=== PATIENT | male | born 1950 | race Caucasian/White ===

== ENCOUNTER → 2019-05-18 09:51 | Outpatient (CLI) | payer MEDICARE, SELFPAY ==
--- NOTE | 2019-05-18 10:04 | ART_ITS ---
Reason For Study: Claudication Procedure A bilateral lower extremity continuous wave Doppler with analog waveform analysis,segmental pressures,and ankle brachial indexes without exercise. Left Segmental Pressures Left brachial= 158mmHg. Left posterior tibial artery = >254mmHg. Left dorsalis pedis artery = >254mmHg. Left digit = 167 mmHg. The left dorsalis pedis waveforms are triphasic. The left posterior tibial artery waveforms are triphasic. Right Segmental Pressures Right brachial= 155mmHg. Right posterior tibial artery = >254mmHg. Right dorsalis pedis artery = >254mmHg. Right digit = 144 mmHg. The right dorsalis pedis waveforms are triphasic. The right posterior tibial artery waveforms are triphasic. Indices The right ankle brachial index by the dorsalis pedis is NC. The right ankle brachial index by the posterior tibial artery is NC. The right digital-brachial index is 0.91. The left ankle brachial index by the dorsalis pedis is NC. The left ankle brachial index by the posterior tibial artery is NC. The left digital-brachial index is 1.06. Interpretation Summary Triphasic Doppler waveforms are noted at ankle level bilaterally. Pulse-volume recordings appear satisfactory at all levels bilaterally. Resting ankle-brachial indices could not be determined bilaterally due to the noncompressibility of the vasculature. Digital-brachial indices are normal bilaterally. There is no evidence of significant arterial occlusive disease in the lower extremities bilaterally. However, there is evidence of arterial calcification at ankle level bilaterally. Ordering Physician: Darius Porter Referring Physician: MD Prabhjot Kimani Performed By: Graciela Singh RVT
== END ==
PROVIDERS: Family Provider Family Medicine; PCP Family Medicine; Referring Provider Student in an Organized Health Care Education/Training Program; Visit Provider Student in an Organized Health Care Education/Training Program
DX: I73.9 Peripheral vascular disease, unspecified (principal); E78.5 Hyperlipidemia, unspecified; E11.40 Type 2 diabetes mellitus with diabetic neuropathy, unspecified; I10 Essential (primary) hypertension; I25.10 Atherosclerotic heart disease of native coronary artery without angina pectoris
CPT/HCPCS: 93923

== ENCOUNTER → 2019-07-22 13:56 | Outpatient (CLI) | payer MEDICARE, SELFPAY ==
[2019-07-14 15:12] VITALS: BMI 34.3
--- NOTE | 2019-07-22 14:00 | ECHOCS_ITS ---
Reason For Study: Murmur Procedure This was a 2D Doppler, Color Flow transthoracic echocardiogram. The study was technically difficult. Contrast injection was performed. Exam performed in department. Left Ventricle Normal LV size. Left ventricular systolic function is normal. The estimated ejection fraction is 60 %. Unable to assess diastolic dysfunction. No regional wall motion abnormalities noted. Right Ventricle Normal RV size. Normal systolic function. Atria The left atrium is mildly enlarged. Normal right atrium. No doppler evidence for ASD. Mitral Valve There is mild to moderate mitral annular calcification. Extension of the mitral annular calcification onto the mitral valve leaflets. Mild-Moderate (1-2+) mitral valve insufficiency. Tricuspid Valve Normal tricuspid valve. Mild to moderate (1-2+) tricuspid valve insufficiency. Right ventricular systolic pressure estimated to be 23 mmHg. Aortic Valve Trisinus/trileaflet aortic valve. Mild diffuse aortic valve thickening. Mild diffuse aortic valve calcification. Mild aortic stenosis. Pulmonic Valve The pulmonic valve is not well visualized. Great Vessels Normal sized aortic root. Pericardium/Pleural No pericardial effusion. Medication 20 gauge I.V. with prn adaptor inserted into right arm. Diluted definity 2ml given slow IV push to enhance endocardial definition. MMode/2D Measurements & Calculations LVIDd: 4.0 cm IVSd: 1.8 cm LVOT diam: 2.0 cm LVIDs: 2.2 cm LVPWd: 1.3 cm FS: 46.7 % LVOT area: 3.2 cm2 Ao root diam: 3.8 cm LAV(MOD-bp): 78.9 ml LA A4 area: 22.3 cm2 LA dimension: 4.1 cm LAV(MOD-bp) Indexed: 38.1 ml/m2 LAV(MOD-sp2): 87.0 ml LAV(MOD-sp4): 70.5 ml RA A4 area: 17.1 cm2 Time Measurements MV dec time: 0.13 sec Doppler Measurements & Calculations MV E max gus: 125.8 cm/sec MV V2 max: 134.3 cm/sec MV P1/2t max gus: 134.8 cm/sec MV max P.2 mmHg MV P1/2t: 56.6 msec MV V2 mean: 62.8 cm/sec MV mean P.9 mmHg MV dec slope: 697.4 cm/sec2 MV V2 VTI: 26.4 cm MVA(P1/2t): 3.9 cm2 Ao V2 max: 176.2 cm/sec LV V1 max: 80.9 cm/sec PA V2 max: 103.0 cm/sec Ao max P.5 mmHg LV V1 max P.6 mmHg KEVIN(V,D): 1.5 cm2 TR max gus: 226.0 cm/sec TR max P.4 mmHg Interpretation Summary The study was technically difficult. Contrast injection was performed. Left ventricular systolic function is normal. The estimated ejection fraction is 60 %. The left atrium is mildly enlarged. There is mild to moderate mitral annular calcification. Extension of the mitral annular calcification onto the mitral valve leaflets. Mild-Moderate (1-2+) mitral valve insufficiency. Mild to moderate (1-2+) tricuspid valve insufficiency. Mild aortic stenosis. Right ventricular systolic pressure estimated to be 23 mmHg. Unable to assess diastolic dysfunction. Ordering Physician: Carlos Mojica Referring Physician: Carlos Mojica Performed By: Tonio Caban RCS
== END ==
PROVIDERS: PCP Family Medicine; Referring Provider Internal Medicine Cardiovascular Disease; Visit Provider Internal Medicine Cardiovascular Disease
DX: I48.20 Chronic atrial fibrillation, unspecified (principal)
CPT/HCPCS: 93306; Q9957; A4216; C8929

== ENCOUNTER → 2020-04-13 05:50 | Outpatient (CLI) | payer MEDICARE, SELFPAY ==
[2020-01-11 11:21] VITALS: BMI 33.6
--- NOTE | 2020-04-13 08:24 | STRESSREP ---
Stress Test Report Date: Procedure: Pharmacologic stress nuclear imaging study Indications: Syncope; CAD; CABG Consent: Per the patient Procedure: The patient underwent pharmacologic (Regadenoson) evaluation with a peak heart rate of 111 beats per minute (72%predicted maximal heart rate) and a peak blood pressure of 132/92 mmHg. The baseline ECG demonstrated atrial fibrillation. The peak pharmacologic ECG demonstrated no obvious ECG changes. There were no cardiac dysrhythmias pretest, during pharmacologic infusion, or recovery. There was no complaint of chest discomfort during pharmacologic infusion or recovery. The examination was discontinued secondary to completion of protocol. Impression: 1. Pharmacologic (Regadenoson) evaluation 2. Peak pharmacologic ECG with continued atrial fibrillation with no obvious ECG changes. 3. There were no cardiac dysrhythmias pretest, during pharmacologic infusion, or recovery. 4. Nuclear images pending Myocardial perfusion imaging study: Technique: The patient was injected with 15.0 millicuries of technetium 99m Cardiolite and subsequently rest SPECT Cardiolite nuclear imaging was obtained in the horizontal long, vertical long, and short axis views. The patient underwent pharmacologic (Regadenoson) evaluation with a peak heart rate of 111 beats per minute (72% percent predicted maximal heart rate) and a peak blood pressure of 132/92 mmHg. The patient was injected with 45.0 millicuries of technetium 99m Cardiolite and subsequently stress SPECT Cardiolite nuclear imaging was obtained in the horizontal long, vertical long, and short axis views. A gated Cardiolite study at peak stress was obtained. Interpretation: Rest and stress SPECT Cardiolite nuclear imaging status post realignment, normalization, and attenuation correction demonstrate relative uniform tracer uptake and myocardial perfusion appearing within normal limits. There is end systolic thickening and brightening. The gated Cardiolite study demonstrates myocardial thickening and inward wall motion. The reported LVEF is 74%. Impression: 1. Rest and stress SPECT Cardiolite nuclear imaging demonstrate relative uniform tracer uptake and myocardial perfusion appearing within normal limits. 2. The gated Cardiolite study reports an LVEF of 74%. This note was generated with [employer] software. It may contain incorrect words, spelling, and punctuation that were not noted in checking the note before signing.
== END ==
PROVIDERS: PCP Family Medicine; Referring Provider Internal Medicine Cardiovascular Disease; Visit Provider Internal Medicine Cardiovascular Disease
DX: I48.20 Chronic atrial fibrillation, unspecified (principal); E11.9 Type 2 diabetes mellitus without complications; G47.33 Obstructive sleep apnea (adult) (pediatric); Z99.89 Dependence on other enabling machines and devices; E78.2 Mixed hyperlipidemia; I10 Essential (primary) hypertension; Z95.1 Presence of aortocoronary bypass graft; I25.118 Atherosclerotic heart disease of native coronary artery with other forms of angina pectoris; R55 Syncope and collapse
CPT/HCPCS: 78452; 93017; 93271; A9500; A4216; J2785

== ENCOUNTER → 2020-10-05 07:36 | Outpatient (CLI) | payer MEDICARE, SELFPAY ==
[2020-10-01 10:46] VITALS: BMI 32.5
--- NOTE | 2020-10-05 07:43 | ECHOCS_ITS ---
Reason For Study: Murmur Procedure This was a 2D Doppler, Color Flow transthoracic echocardiogram. Technically difficult study, contrast injection performed. The study was technically difficult. Contrast injection was performed. Exam performed in department. Left Ventricle Normal LV size. Mild concentric left ventricular hypertrophy. Left ventricular systolic function is normal. The estimated ejection fraction is 60 %. Unable to assess diastolic dysfunction. No regional wall motion abnormalities noted. Right Ventricle Normal RV size. Normal systolic function. Atria The left atrium is moderately enlarged. The right atrium is mildly enlarged. No doppler evidence for ASD. Mitral Valve There is mild mitral annular calcification. Extension of the mitral annular calcification on the base of the posterior mitral valve leaflet. Mild (1+) mitral valve insufficiency. Tricuspid Valve Normal tricuspid valve. Mild to moderate (1-2+) tricuspid valve insufficiency. Right ventricular systolic pressure estimated to be 20 mmHg. Aortic Valve Trisinus/trileaflet aortic valve. Moderate diffuse aortic valve thickening. Moderate diffuse aortic valve calcification. Moderate aortic stenosis. Pulmonic Valve The pulmonic valve is not well visualized. Trivial pulmonic valve insufficiency. Great Vessels Calcified aortic root. Pericardium/Pleural No pericardial effusion. Medication 22 gauge I.V. with prn adaptor inserted into right arm. Diluted definity 3ml given slow IV push to enhance endocardial definition. MMode/2D Measurements & Calculations LVIDd: 3.9 cm IVSd: 1.5 cm LVOT diam: 2.0 cm LVIDs: 2.3 cm LVPWd: 1.4 cm FS: 39.5 % LVOT area: 3.2 cm2 LA dimension: 4.2 cm LAV(MOD-bp): 67.7 ml Aortic Valve Planimetry: 1.1 cm2 LAV(MOD-bp) Indexed: 33.0 ml/m2 LAV(MOD-sp2): 57.6 ml LAV(MOD-sp4): 74.3 ml LA A4 area: 24.6 cm2 RA A4 area: 20.3 cm2 Doppler Measurements & Calculations MV E max gus: 112.8 cm/sec Ao V2 max: 235.2 cm/sec LV V1 max: 66.4 cm/sec Ao max P.2 mmHg LV V1 max P.8 mmHg Ao V2 mean: 151.4 cm/sec LV V1 mean P.1 mmHg Ao mean P.1 mmHg LV V1 mean: 49.5 cm/sec Ao V2 VTI: 48.2 cm LV V1 VTI: 14.0 cm KEVIN(I,D): 0.94 cm2 KEVIN(V,D): 0.91 cm2 SV(LVOT): 45.1 ml TR max gus: 206.0 cm/sec TR max P.0 mmHg ECHO/Echo Complete W/ Contrast Interpretation Summary The study was technically difficult. Contrast injection was performed. Left ventricular systolic function is normal. The estimated ejection fraction is 60 %. Mild concentric left ventricular hypertrophy. The left atrium is moderately enlarged. The right atrium is mildly enlarged. There is mild mitral annular calcification. Extension of the mitral annular calcification on the base of the posterior mitr al valve leaflet. Mild (1+) mitral valve insufficiency. Mild to moderate (1-2+) tricuspid valve insufficiency. Moderate aortic stenosis. Trivial pulmonic valve insufficiency. Calcified aortic root. Right ventricular systolic pressure estimated to be 20 mmHg. Unable to assess diastolic dysfunction. Ordering Physician: Carlos Mojica Referring Physician: Ricci Rick Performed By: Tonio Caban RCS
== END ==
PROVIDERS: PCP Family Medicine; Visit Provider Internal Medicine Cardiovascular Disease
DX: I25.10 Atherosclerotic heart disease of native coronary artery without angina pectoris (principal); I34.0 Nonrheumatic mitral (valve) insufficiency; I07.1 Rheumatic tricuspid insufficiency; I35.0 Nonrheumatic aortic (valve) stenosis
CPT/HCPCS: 93306; Q9957; A4216; C8929

== ENCOUNTER 2020-10-20 13:02 | Emergency (ER) | payer MEDICARE, SELFPAY ==
[2020-10-01 10:46] VITALS: BMI 32.5
[2020-10-20 13:06] VITALS: BP 159/87; PULSE 92; RESP 18; TEMP 36.6; O2SAT 98; BMI 32.7
[2020-10-20 13:43] VITALS: O2SAT 98
--- NOTE | 2020-10-20 13:55 | RAD_ITS ---
STUDY: X-RAY CHEST REASON FOR EXAM: Male, 70 years old. Cough TECHNIQUE: Single AP portable view of the chest. COMPARISON: None. FINDINGS: The lungs are clear and expanded. There is no demonstrated pleural abnormality. Sternal cerclage wires and vascular clips are present from a prior sternotomy and coronary artery bypass graft procedure (CABG). Normal mediastinum and ronald. Normal visualized pulmonary arteries. There is mild mild atherosclerotic calcification of the aortic arch with tortuosity. The thoracic spine is not well-seen. Normal visualized ribs, clavicles, and shoulders. There is no demonstrated abnormality of the visualized soft tissue structures of the upper abdomen. RAD/Chest 1 View (Portable) IMPRESSION: No active pulmonary disease. Electronically Signed: Laz Gupta MD at 14:32 EDT Tel , Service support ,
[2020-10-20] MEDS: Loratadine 10 MG Tablet PO (14:10)
--- NOTE | 2020-10-20 14:35 | ED.VISSUMM ---
- ER Visit Summary Date of Service: 10/20/20 Chief Complaint: Congestion and cough History of Present Illness: The patient is a [address] Busby. Patient reports that he got his second Pfizer Covid vaccine 3 days ago. 8 to 10 hours later he became congested and has rhinorrhea. He had a sore throat which is resolved. He has a cough that is nonproductive. He denies any fever or chills. He denies any chest pain or shortness of breath. Physical Examination: Vitals: Stable. Afebrile. General: Well-nourished and well-developed. Head: Normocephalic atraumatic. Neck: Supple, no lymphadenopathy. No JVD. Nontender. Cardiovascular: Regular rate and rhythm. No murmurs. Respiratory: No respiratory distress. Clear to auscultation bilaterally. Abdominal: Soft, nontender, nondistended, normal bowel sounds. No guarding, rebound, or peritoneal signs. Back: Nontender. Extremities: Nontender, no edema. Skin: Normal color, no rash. Neurologic: Alert and oriented ?3. Cranial nerves II through XII are intact. Normal strength and sensation. Psych: Normal affect. Test Results: COVID-19 is negative. Clinical Impression(s) from Imaging Studies Chest X-Ray 10/20/20 13:55 IMPRESSION: No active pulmonary disease. Electronically Signed: Laz Gupta MD at 14:32 EDT Tel , Service support , Emergency Department Course and Treatment: Patient was given a dose of Claritin p.o. He is resting comfortably. Treatment Plan: I discussed the patient this is likely a coincidence with getting the Covid shot and that he may have seasonal allergies. He will be discharged with [facility]. Instructed to follow-up his primary care physician in 2 weeks if not improving. Return to the emergency department for any worsening symptoms. Disposition: To home in improved and stable condition. Impression: 1. URI. This note was generated with [employer] software. It may contain incorrect words, spelling, and punctuation that were not noted in review of the chart prior to signing ED Disposition - Plan for ED Patient: Disposition: Home or Assisted Living Instructions: ED URI, Viral, No Abx (Adult) Prescriptions: Cetirizine HCl [Zyrtec] 10 mg PO DAILY #14 capsule Prescription Printed Referrals: Ricci Rick MD [Primary Care Provider] - 10-14 Days if not better
[2020-10-20 14:49] VITALS: PULSE 65; RESP 16; O2SAT 96
== END 2020-10-20 14:51 | disposition home or self-care (01) ==
LOC: ED 13:51
PROVIDERS: Emergency Provider Emergency Medicine; PCP Family Medicine
DX: J06.9 Acute upper respiratory infection, unspecified (principal); E11.9 Type 2 diabetes mellitus without complications; I10 Essential (primary) hypertension; I48.91 Unspecified atrial fibrillation; I25.10 Atherosclerotic heart disease of native coronary artery without angina pectoris; Z95.1 Presence of aortocoronary bypass graft; Z79.4 Long term (current) use of insulin; Z79.899 Other long term (current) drug therapy; Z72.0 Tobacco use
CPT/HCPCS: 71045; 87426; 99283

== ENCOUNTER 2021-02-11 06:41 | Emergency (ER) | payer MEDICARE, SELFPAY ==
[2021-02-11 06:41] VITALS: BP 186/104; PULSE 68; RESP 18; TEMP 36.4; O2SAT 100; BMI 32.8
--- NOTE | 2021-02-11 07:15 | EDS_ITS ---
HPI History of Present Illness Chief Complaint: General Illness Narrative Narrative: 70-year-old male presenting requesting Covid testing. He states he was exposed to someone who tested positive for Covid on January 28. He states he had diarrhea but that has now improved. He is scheduled to have lung cancer screening on Thursday and is requesting Covid testing before this screening. Denies fever, chills. Denies shortness of breath or chest pain. Denies symptoms at this time. He is vaccinated for Covid. Recent Illness/Hospitalization: No [facility] Medical History (Updated 02/11/21 @ 07:[address] Abby March MD) Atherosclerotic heart disease of [place] coronary artery without angina pectoris Chronic atrial fibrillation Essential hypertension Mixed hyperlipidemia Nonrheumatic aortic (valve) stenosis DEMETRI on CPAP Type 2 diabetes mellitus Home Medications lisinopril 40 mg tablet 40 mg PO DAILY 07/08/19 [History Last Taken Unknown] gabapentin 300 mg capsule 300 mg PO BID cap 07/14/19 [History Last Taken Unknown] hydrocodone-acetaminophen 5-325mg 5mg-325mg 1 tab PO Q6H PRN 07/14/19 [History Last Taken Unknown] metformin 500 mg tablet 500 mg PO .COMPLEX 07/14/19 [History Last Taken Unknown] atorvastatin 40 mg tablet 40 mg PO DAILY #90 tab 01/11/20 [Rx Last Taken Unknown] dulaglutide 0.75 mg/0.5 mL subcutaneous pen injector 0.75 mg SC QWEEK 04/09/20 [History Last Taken Unknown] insulin degludec 100 unit/mL (3 mL) subcutaneous pen 82 unit SC DAILY ml 10/01/20 [History Last Taken Unknown] cetirizine 10 mg PO DAILY #14 capsule 10/20/20 [Rx Last Taken Unknown] metoprolol tartrate 50 mg PO BID 10/20/20 [History Last Taken Unknown] rivaroxaban 20 mg tablet 20 mg PO DAILY #90 tab 10/23/20 [Rx Last Taken Unknown] Allergy/AdvReac Type Severity Reaction Status Date / Time No Known Allergies Allergy Verified 02/11/21 06:46 Family History Father Sudden cardiac , Onset Age: 49 Mother Alzheimer disease Sister Diabetes Surgical History History of coronary artery bypass surgery (~10/17/09) History of tonsillectomy Social History (Updated 10/01/20 @ 11:[address] Carlos Mojica MD) Smoking Status: Former smoker alcohol intake: current details: Occasional substance use type: does not use caffeine: Yes Type: tea Number of servings: 1 ROS ROS ED Constitutional Constitutional ED: Denies fever(s) Eyes Eyes: Denies change in vision ENT ENT ED: Denies rhinorrhea or sore throat Cardiovascular Cardiovascular: Denies chest pain or palpitations Respiratory/Chest Respiratory/Chest: Denies cough or dyspnea Gastrointestinal Gastrointestinal: Denies abdominal pain, diarrhea, nausea or vomiting Genitourinary Genitourinary ED: Denies dysuria Musculoskeletal Musculoskeletal: Denies myalgias Integumentary Denies rash Neurologic Neurologic: Denies headache(s) Psychiatric Psychiatric: Denies suicidal thoughts EXAM Physical Exam Const Vital Signs: 02/11/21 06:41 Temperature 97.6 F L Temperature Source Temporal Pulse Rate 68 Respiratory Rate 18 Blood Pressure 186/104 H Blood Pressure Mean 131 Pulse Ox 100 Oxygen Delivery Method Room Air Positive well nourished and well developed General Appearance ED: well developed HEENT Reports normocephalic and head/scalp atraumatic Eyes PERRL and EOMs intact bilaterally Neck supple General: Negative for tenderness Chest Wall inspection of chest normal Resp normal respiratory effort and clear to auscultation bilaterally Cardio regular rate and regular rhythm GI non-tender and non-distended Palpation: soft; Negative for guarding or rebound tenderness present no CVA tenderness Extremity normal to inspection Neuro oriented x3 Sensorium / Orientation: alert Psych mental status grossly normal MDM MDM MDM Narrative Medical decision making narrative: Rapid Covid is negative. Patient is advised to continue social distancing. Advised to follow-up with primary care physician. Advised return to ED for worsening complaints. Lab Data Attestation: I reviewed the patient's lab results. Discharge Plan Triage Chief Complaint: General Illness ED Provider: Abby March Dx/Rx/DC Orders Clinical Impression: Contact with and (suspected) exposure to covid-19 Instructions: Coronavirus Disease 2019 (COVID-19): Prevention Prescriptions: No Action hydrocodone-acetaminophen [[place]] 5-325 mg tablet 1 tab PO Q6H PRN (Reason: Pain Score 1-10) RF: 0 lisinopril 40 mg tablet 40 mg PO DAILY RF: 0 gabapentin 300 mg capsule 300 mg PO BID RF: 0 metformin 500 mg tablet 500 mg PO .COMPLEX RF: 0 Tresiba FlexTouch U-100 100 unit/mL (3 mL) insulin pen 82 unit SC DAILY RF: 0 atorvastatin 40 mg tablet 40 mg PO DAILY Qty: 90 RF: 3 metoprolol tartrate 50 MG tablet 50 mg PO BID RF: 0 cetirizine 10 MG capsule 10 mg PO DAILY Qty: 14 RF: 0 Trulicity 0.75 mg/0.5 mL pen injector 0.75 mg SC QWEEK RF: 0 Xarelto 20 mg tablet 20 mg PO DAILY Qty: 90 RF: 3 Primary Care Provider: Ricci Rick Referrals: Ricci Rick MD [Primary Care Provider] - Disposition Disposition: Home, Self Care
== END 2021-02-11 08:37 | disposition home or self-care (01) ==
PROVIDERS: Emergency Provider Emergency Medicine; PCP Family Medicine
DX: Z20.822 Contact with and (suspected) exposure to COVID-19 (principal); I10 Essential (primary) hypertension; E11.9 Type 2 diabetes mellitus without complications; E78.2 Mixed hyperlipidemia; I35.0 Nonrheumatic aortic (valve) stenosis; I25.10 Atherosclerotic heart disease of native coronary artery without angina pectoris; I48.20 Chronic atrial fibrillation, unspecified; G47.33 Obstructive sleep apnea (adult) (pediatric); Z95.1 Presence of aortocoronary bypass graft; Z79.4 Long term (current) use of insulin; Z79.01 Long term (current) use of anticoagulants; Z79.899 Other long term (current) drug therapy; Z87.891 Personal history of nicotine dependence
CPT/HCPCS: 87426; 99282

== ENCOUNTER → 2022-02-07 | Outpatient (CLI) | payer MEDICARE, SELFPAY ==
[2022-02-07 14:57] LABS: Absolute Lymphocyte Count 1.44 X10^3/uL (0.83-4.51); Absolute Neutrophil Count 5.5 X10^3/uL (2.0-7.7); Basophil# 0.04 X10^3/uL; Basophil% 0.5 % (0-1); Eosinophil# 0.51 X10^3/uL; Eosinophils% 6.2 % (0-5); Lymphocyte # 1.44 X10^3/ul (0.83-4.51); Lymphocyte % 17.6 % (19-41); Mean Corp Hgb Conc 33.3 g/dL (32-36); Mean Corpuscular Hgb 29.8 pg (27.0-32.0); Mean Corpuscular Volume 89.3 fL (80-94); Mean Platelet Vol. 9.5 fl (6.2-12.0); Monocyte% 7.3 % (0-10); NRBC Flagged by Analyzer 0 % (0-5); Neutrophil # 5.54 X10^3/uL (2.7-7.7); Neutrophil % 67.9 % (47-70); Platelet Count 243 K/mm3 (150-450); RBC Distribution Width CV 13.7 % (11.6-14.6); RBC Distribution Width SD 44.6 fl (35.1-43.9); Red Blood Count 5.04 M/mm3 (4.6-6.2); White Blood Count 8.2 K/mm3 (4.4-11.0)
[2022-02-07 15:41] LABS: Anion Gap 5 (5-15); BUN 15 mg/dL (7-18); BUN/Creat Ratio 12.4 RATIO (10-20); Calcium,Total 9.5 mg/dL (8.5-10.1); Chloride 109 mmol/L (98-107); Creatinine, Serum 1.21 mg/dL (0.70-1.30); EST Glomerular Filtration Rate 63 mL/min (>60); Est Glom Filt Rate - Afr Amer 76 mL/min (>60); Glucose 82 mg/dL (74-106); Potassium 4.5 mmol/L (3.5-5.1); Sodium Level 140 mmol/L (136-145); T4 Free Direct 1.01 ng/dL (0.76-1.46); Thyroid Stim Hormone (TSH) 2.17 uIU/mL (0.358-3.74)
[2022-02-07 16:14] LABS: BNP,B-Type NATRIURETIC PEPTIDE 153.2 pg/mL (0-100)
== END | disposition home or self-care (01) ==
LOC: LAB 14:16
PROVIDERS: PCP Family Medicine; Referring Provider Nurse Practitioner Family; Visit Provider Nurse Practitioner Family
DX: R06.09 Other forms of dyspnea (principal); R53.83 Other fatigue
CPT/HCPCS: 36415; 80048; 83880; 84439; 84443; 85025

== ENCOUNTER → 2022-02-20 | Outpatient (CLI) | payer MEDICARE, SELFPAY ==
--- NOTE | 2022-02-20 06:02 | ECHOCS_ITS ---
Reason For Study: Dyspnea/SOB Procedure This was a 2D Doppler, Color Flow transthoracic echocardiogram. The study was technically difficult. Contrast injection was performed. Exam performed in department. Left Ventricle Normal LV size. Left ventricular systolic function is normal. The estimated ejection fraction is 55 %. Unable to assess diastolic dysfunction due to arrhythmia. No regional wall motion abnormalities noted. Right Ventricle Normal RV size. Normal systolic function. Atria The left atrium is mildly enlarged. Normal right atrium. No doppler evidence for ASD. Mitral Valve There is mild mitral annular calcification. Mild focal mitral valve calcification. Mild (1+) mitral valve insufficiency. Tricuspid Valve Normal tricuspid valve. Moderate (2+) tricuspid valve insufficiency. Right ventricular systolic pressure estimated to be 24 mmHg. Aortic Valve Trisinus/trileaflet aortic valve. Moderate diffuse aortic valve thickening. Moderate diffuse aortic valve calcification. Moderate to severe aortic valve stenosis. Pulmonic Valve The pulmonic valve is not well visualized. Great Vessels The aortic root is not well visualized. Pericardium/Pleural No pericardial effusion. Medication 20 gauge I.V. with prn adaptor inserted into right arm. Diluted definity 1.5ml given slow IV push to enhance endocardial definition. MMode/2D Measurements & Calculations LVIDd: 4.4 cm IVSd: 1.0 cm LVOT diam: 2.0 cm LVIDs: 2.7 cm LVPWd: 0.99 cm RVDd: 3.2 cm FS: 37.8 % LVOT area: 3.2 cm2 LA dimension: 4.2 cm LAV(MOD-bp): 88.8 ml Aortic Valve Planimetry: 0.62 cm2 LAV(MOD-bp) Indexed: 43.7 ml/m2 LAV(MOD-sp2): 88.4 ml LAV(MOD-sp4): 78.8 ml LA A4 area: 24.6 cm2 RA A4 area: 17.6 cm2 Doppler Measurements & Calculations MV E max corey: 119.8 cm/sec Lat Peak E' Corey: 12.1 cm/sec Med Peak E' Corey: 9.2 cm/sec E/E' lat: 9.9 E/E' med: 13.1 Ao V2 max: 264.4 cm/sec LV V1 max: 61.4 cm/sec MR max corey: 368.9 cm/sec Ao max P.1 mmHg LV V1 max P.5 mmHg MR max P.4 mmHg Ao V2 mean: 183.2 cm/sec LV V1 mean P.82 mmHg Ao mean P.7 mmHg LV V1 mean: 41.7 cm/sec Ao V2 VTI: 54.6 cm LV V1 VTI: 14.9 cm KEVIN(I,D): 0.87 cm2 KEIVN(V,D): 0.74 cm2 SV(LVOT): 47.6 ml PA V2 max: 125.8 cm/sec TR max corey: 230.6 cm/sec TR max P.3 mmHg ECHO/Echo Complete W/ Contrast Interpretation Summary The study was technically difficult. Contrast injection was performed. Left ventricular systolic function is normal. The estimated ejection fraction is 55 %. The left atrium is mildly enlarged. There is mild mitral annular calcification. Mild focal mitral valve calcification. Mild (1+) mitral valve insufficiency. Moderate (2+) tricuspid valve insufficiency. Moderate to severe aortic valve stenosis. (by Spectral Doppler) and severe aort ic valve stenosis (by Planimetry). Right ventricular systolic pressure estimated to be 24 mmHg. Unable to assess diastolic dysfunction due to arrhythmia. Ordering Physician: Frankie Pantoja Referring Physician: Ricci Rick Performed By: Tonio Caban RCS
--- NOTE | 2022-02-20 10:01 | STRESSREP_ITS ---
Stress Test Report Date: 02-20-2022 Procedure: Pharmacologic stress nuclear imaging study Indications: Dyspnea on exertion; fatigue; CAD; status post CABG; aortic valve stenosis; atrial fibrillation Consent: Per the patient Procedure: The patient underwent pharmacologic (Regadenoson 0.4mg ) evaluation with a peak heart rate of 98 beats per minute (64%predicted maximal heart rate) and a peak blood pressure of 124/80 mmHg. The baseline ECG demonstrated atrial fibrillation. The peak pharmacologic ECG demonstrated no obvious ECG changes. There was a rare PVC pretest. There was no complaint of chest discomfort during pharmacologic infusion or recovery. The examination was discontinued secondary to completion of protocol. Impression: 1. Pharmacologic (Regadenoson) evaluation 2. Peak pharmacologic ECG with continued atrial fibrillation with no obvious ECG changes. 3. There was a rare PVC pretest. 4. Nuclear images pending Myocardial perfusion imaging study: Technique: The patient was injected with 14.5 millicuries of technetium 99m Cardiolite and subsequently rest SPECT Cardiolite nuclear imaging was obtained in the horizontal long, vertical long, and short axis views. The patient underwent pharmacologic (Regadenoson) evaluation with a peak heart rate of 98 beats per minute (64% percent predicted maximal heart rate) and a peak blood pressure of 124/80 mmHg. The patient was injected with 44.6 millicuries of technetium 99m Cardiolite and subsequently stress SPECT Cardiolite nuclear imaging was obtained in the horizontal long, vertical long, and short axis views. A gated Cardiolite study at peak stress was obtained. Interpretation: Rest and stress SPECT Cardiolite nuclear imaging status post realignment, normalization, and attenuation correction demonstrate relative uniform tracer uptake and myocardial perfusion appearing within normal limits. There is end systolic thickening and brightening. The gated Cardiolite study demonstrates myocardial thickening and inward wall motion. The reported LVEF is 68%. Impression: 1. Rest and stress SPECT Cardiolite nuclear imaging demonstrate relative uniform tracer uptake and myocardial perfusion appearing within normal limits. 2. The gated Cardiolite study reports an LVEF of 68%. This note was generated with [employer] software. It may contain incorrect words, spelling, and punctuation that were not noted in checking the note before signing.
== END | disposition home or self-care (01) ==
PROVIDERS: PCP Family Medicine; Referring Provider Nurse Practitioner Family; Visit Provider Nurse Practitioner Family
DX: I35.0 Nonrheumatic aortic (valve) stenosis (principal); I48.20 Chronic atrial fibrillation, unspecified; Z95.1 Presence of aortocoronary bypass graft; R53.83 Other fatigue
CPT/HCPCS: 78452; 93017; 93306; A9500; Q9957; A4216; C8929; J2785

== ENCOUNTER 2022-03-07 02:17 | Observation (INO) | payer MEDICARE, SELFPAY ==
[2022-03-07] VITALS (13 sets, daily range): BP systolic 129–194; BP diastolic 81–111; PULSE 78–115; RESP 16–26; TEMP 36.6–37; O2SAT 93–98; BMI 32.9; BMI 30.7
--- NOTE | 2022-03-07 02:25 | EKG12_ITS ---
Test Reason : HYPOGLYCEMIA Blood Pressure : / mmHG Vent. Rate : 119 BPM Atrial Rate : 220 BPM P-R Int : 000 ms QRS Dur : 080 ms QT Int : 310 ms P-R-T Axes : 000 023 107 degrees QTc Int : 436 ms Atrial fibrillation Nonspecific ST and T wave abnormality Abnormal ECG Confirmed by NEYMAR BYRANT, WILLIAM ([id number]), photographic editor MINO SCANLON ([id number]) on 03/10/2022 10:51:10 AM Referred By: VICKY Confirmed By:WILLIAM BLACKMON MD
--- NOTE | 2022-03-07 02:31 | EX.ED.DYSGE1 ---
HPI History of Present Illness Chief Complaint: Hypoglycemia Informant: patient Narrative Narrative: Patient is a 71-year-old male with history of coronary artery disease status post bypass in 2009, DEMETRI on CPAP, type 2 diabetes mellitus on metformin,Tresiba and Trulicity as well as atrial fibrillation on chronic Xarelto treatment presenting with generalized malaise, upset stomach and hypoglycemia. Patient states he has been under a lot of stress and is especially worried as he has a cardiac catheterization scheduled for next week on Thursday. He denies any chest pain but notes he had an abnormal stress test. He has been feeling unwell for a couple of days and his symptoms are especially bad today. Has had some nausea and generalized abdominal discomfort. He has a hard time describing or localizing it. He called his daughter but the phone was not working and she could not hear what he was saying so the daughter called 911. Patient was found to be hyperglycemic with a blood sugar in the 50s per EMS. He was given oral glucose and started on D10 infusion. Patient notes he normally can tell when his blood glucose is low but could not tell today. Denies any other complaints at this time. Chart review shows that patient had a normal recent stress test on 02/20/2022 however he has been having occasional shortness of breath and increased fatigue which is why cardiac work-up was initiated. Echocardiogram showed moderate to severe aortic valve stenosis with EF of 55% and right ventricular systolic pressure 24 mmHg. Stress test was largely normal. [facility] Medical History Atherosclerotic heart disease of [place] coronary artery without angina pectoris Chronic atrial fibrillation Essential hypertension Mixed hyperlipidemia Nonrheumatic aortic (valve) stenosis DEMETRI on CPAP Type 2 diabetes mellitus Home Medications lisinopril 40 mg tablet 40 mg PO DAILY 07/08/19 [History Last Taken Unknown] metformin 500 mg tablet 500 mg PO .COMPLEX 07/14/19 [History Last Taken Unknown] atorvastatin 40 mg tablet 40 mg PO DAILY #90 tabs 01/11/20 [Rx Last Taken Unknown] metoprolol tartrate 50 mg tablet 50 mg PO BID 10/20/20 [History Last Taken Unknown] rivaroxaban 20 mg tablet (Xarelto) 20 mg PO DAILY #90 tabs 10/23/20 [Rx Last Taken Unknown] dulaglutide 1.5 mg/0.5 mL subcutaneous pen injector (Trulicity) 1.5 mg subcut QWEEK 02/07/22 [History Last Taken Unknown] gabapentin 300 mg capsule 300 mg PO QHS 02/07/22 [History Last Taken Unknown] insulin degludec 100 unit/mL (3 mL) subcutaneous pen (Tresiba FlexTouch U-100 insulin) 12 unit subcut DAILY 02/07/22 [History Last Taken Unknown] Allergy/AdvReac Type Severity Reaction Status Date / Time No Known Allergies Allergy Verified 03/07/22 02:24 Family History Father Sudden cardiac , Onset Age: 49 Mother Alzheimer disease Sister Diabetes Surgical History History of coronary artery bypass surgery (~10/17/09) History of tonsillectomy Social History Smoking Status: Former smoker how long ago did patient quit smokin years ago alcohol intake: never substance use type: does not use caffeine: No ROS ROS ED Constitutional Constitutional ED: Denies chills or fever(s) Eyes Eyes: Denies change in vision ENT ENT ED: Denies sore throat Cardiovascular Cardiovascular: Denies chest pain or palpitations Respiratory/Chest Respiratory/Chest: Denies cough or dyspnea Gastrointestinal Gastrointestinal: Reports abdominal pain, nausea and vomiting; Denies constipation or diarrhea Genitourinary Genitourinary ED: Denies dysuria or hematuria Musculoskeletal Musculoskeletal: Denies arthralgias or myalgias Integumentary Denies rash Neurologic Neurologic: Reports weakness; Denies headache(s) or paresthesias Psychiatric Psychiatric: Denies anxiety Hematologic/Lymphatic Hematologic/Lymphatic: Reports easy bleeding and easy bruising EXAM Physical Exam Const Vital Signs: 03/07/22 02:18 03/07/22 04:35 03/07/22 06:14 Temperature 98.0 F Temperature Source Temporal Pulse Rate 113 H 114 H 115 H Respiratory Rate 18 18 26 H Blood Pressure 141/100 H 194/105 H Blood Pressure Mean 113 134 Pulse Ox 98 96 Oxygen Delivery Method Room Air Room Air Oxygen Flow Rate (L/min) 03/07/22 06:55 03/07/22 07:25 Temperature Temperature Source Pulse Rate 101 H 101 H Respiratory Rate 20 H 18 Blood Pressure 171/111 H 164/102 H Blood Pressure Mean 131 122 Pulse Ox 97 96 Oxygen Delivery Method Nasal Cannula Room Air Oxygen Flow Rate (L/min) 2 Positive well nourished and well developed General Appearance ED: well developed and NAD HEENT Reports dry mucous membranes Mouth ED: Yes dry mucous membranes Mouth: dry mucous membranes Eyes PERRL and EOMs intact bilaterally Neck supple and no JVD Chest Wall inspection of chest normal and palpation of chest normal Resp normal respiratory effort and clear to auscultation bilaterally Cardio regular rate and regular rhythm GI normal to inspection, nondistended, normoactive bowel sounds and non-tender Back/Spine no CVA tenderness Extremity normal to inspection General Extremety ED: Negative for edema or tenderness General Extremity: Negative for edema Neuro oriented x3 and no sensory deficits noted Motor Exam: strength 5/5 throughout and general weakness Psych mental status grossly normal Skin no rashes or lesions noted MDM MDM MDM Narrative Medical decision making narrative: Patient evaluated for generalized malaise, nausea and hypoglycemia. Blood sugar was low for EMS and he was given oral and IV glucose replacement. Patient states he just has not been feeling well for couple days. No other specific complaints. Exam is pretty benign. Patient is quite anxious and perseverates on needing a cardiac catheterization next week. Work-up is remarkable for leukocytosis with a white blood cell count of 15.2. Hemoglobin is normal as well as his platelets. BMP largely unremarkable. Lipase low. Given abdominal discomfort and leukocytosis CT of the abdomen pelvis is added on. This is largely negative. Patient's high-sensitivity troponin is 20 and 23. No acute ischemic EKG findings. Patient's glucose remained stable in the ER. Urinalysis is normal. From 5 AM patient started to develop burning and discomfort in his left thigh. This was after the CT. Patient has erythema extending from his left lateral thigh to the posterior knee as well as a separate area of erythema of the anterior knee. No specific warmth. I question of this is an allergic reaction however it is an unusual distribution. He started on IV Benadryl. Patient does not recall any leg discomfort prior to his ER visit. Patient reevaluated after the IV Benadryl. Patient is further progression of the redness no to the proximal calf. Continues to complain of burning pain. Will give IV fentanyl and Solu-Medrol. Compartments are soft. No crepitus. Given the localized erythema and pain we will treat this more like an erysipelas or cellulitis with antibiotics. Lactate is added on. Patient is admitted to the hospital service. Patient agreeable this plan of care. Remains hemodynamically stable in the ER. Lab Data Attestation: I reviewed the patient's lab results. Labs: Laboratory Results - last 24 hr 03/07/22 03/07/22 03/07/22 02:24 02:24 04:05 WBC 15.2 H RBC 5.25 Hgb 15.5 Hct 45.1 MCV 85.9 MCH 29.5 MCHC 34.4 RDW Std Deviation 42.6 RDW Coeff of Arya 13.7 Plt Count 293 MPV 10.1 Immature Gran % (Auto) 0.500 Neut % (Auto) 88.1 H Lymph % (Auto) 5.9 L [place] % (Auto) 5.3 Eos % (Auto) 0.0 Baso % (Auto) 0.2 Absolute Neuts (auto) 13.3 H Absolute Lymphs (auto) 0.90 Nucleated RBC % 0 Sodium 138 Potassium 4.7 Chloride 106 Carbon Dioxide 21.0 Anion Gap 11 BUN 15 Creatinine 1.20 Estim Creat Clear Calc 54.32 Est GFR (MDRD) Af Amer 77 Est GFR (MDRD) Non-Af 64 BUN/Creatinine Ratio 12.5 Glucose 122 H Calcium 9.1 Total Bilirubin 1.20 H AST 37 ALT 34 Alkaline Phosphatase 75 Troponin I High Sens 20 Total Protein 7.6 Albumin 3.4 Globulin 4.2 Albumin/Globulin Ratio 0.8 L Lipase 72 L Urine Color Yellow Urine Clarity Clear Urine pH 6.0 Ur Specific [place] 1.010 Urine Protein 100 H Urine Glucose (UA) Normal Urine Ketones 5 H Urine Occult Blood 10 H Urine Nitrite Negative Urine Bilirubin Negative Urine Urobilinogen Normal Ur Leukocyte Esterase Negative Urine RBC 0 SEEN Urine WBC 0 SEEN Ur Squamous Epith Cells 0 SEEN Urine Bacteria 0 SEEN Urine Mucus 0 SEEN POC Glucose 03/07/22 03/07/22 04:30 04:48 WBC RBC Hgb Hct MCV MCH MCHC RDW Std Deviation RDW Coeff of Arya Plt Count MPV Immature Gran % (Auto) Neut % (Auto) Lymph % (Auto) [place] % (Auto) Eos % (Auto) Baso % (Auto) Absolute Neuts (auto) Absolute Lymphs (auto) Nucleated RBC % Sodium Potassium Chloride Carbon Dioxide Anion Gap BUN Creatinine Estim Creat Clear Calc Est GFR (MDRD) Af Amer Est GFR (MDRD) Non-Af BUN/Creatinine Ratio Glucose Calcium Total Bilirubin AST ALT Alkaline Phosphatase Troponin I High Sens 23 Total Protein Albumin Globulin Albumin/Globulin Ratio Lipase Urine Color Urine Clarity Urine pH Ur Specific [place] Urine Protein Urine Glucose (UA) Urine Ketones Urine Occult Blood Urine Nitrite Urine Bilirubin Urine Urobilinogen Ur Leukocyte Esterase Urine RBC Urine WBC Ur Squamous Epith Cells Urine Bacteria Urine Mucus POC Glucose 109 H Radiography Chest X-Ray - ED: 1 View, Read by ED Physician, Read by Radiologist and No Acute Disease Diagnostic Testing: Clinical Impression(s) from Imaging Studies Chest X-Ray 03/07/22 02:55 IMPRESSION: No acute cardiopulmonary disease Electronically Signed: Mehul Moreno MD at 3:12 EDT , Abdomen/Pelvis CT 03/07/22 03:03 IMPRESSION: 1. No acute intra-abdominal abnormality. 2. Cholelithiasis with no evidence of acute cholecystitis. Electronically Signed: Mehul Moreno MD at 4:01 EDT , Rhythm Strip Rhythm Strip: A-fib Rate: 119 Ectopy: None EKG Initial EKG: Attestation: I personally reviewed and interpreted this EKG as follows: Interpretation: Atrial Fibrillation Comments: Atrial fibrillation at a rate of 119 Normal axis Normal intervals Normal ST segments Discharge Plan Triage Chief Complaint: Hypoglycemia ED Provider: Lidia Collier Dx/Rx/DC Orders Clinical Impression: Cellulitis of left thigh, Chronic atrial fibrillation, Leukocytosis, Hypoglycemia associated with diabetes Prescriptions: No Action lisinopril 40 mg tablet 40 mg PO DAILY metformin 500 mg tablet 500 mg PO .COMPLEX Rx Instructions: 500 mg PO 2 tabs in the am and 1 tab in the pm; gabapentin 300 mg capsule 300 mg PO QHS Tresiba FlexTouch U-100 100 unit/mL (3 mL) insulin pen 12 unit SC DAILY atorvastatin 40 mg tablet 40 mg PO DAILY Qty: 90 3RF Trulicity 1.5 mg/0.5 mL pen injector 1.5 mg subcut QWEEK Label Comments: INJECT 1.5 MG SUBCUTANEOUSLY ONE TIME A WEEK. INJECT ONCE PER WEEK. DISCARD PEN AFTER metoprolol tartrate 50 MG tablet 50 mg PO BID Xarelto 20 mg tablet 20 mg PO DAILY Qty: 90 3RF Rx Instructions: must administer with evening meal Primary Care Provider: Ricci Rick Referrals: Ricci Rick MD [Primary Care Provider] - Disposition Disposition: Home, Self Care
[2022-03-07] MEDS: 0.9% Normal Saline 1,000 ML 1000 ML IV (02:38)
[2022-03-07 02:39] LABS: Absolute Neutrophil Count 13.3 X10^3/uL (2.0-7.7); Basophil# 0.03 X10^3/uL; Basophil% 0.2 % (0-1); Hematocrit 45.1 % (40-54); Hemoglobin 15.5 g/dL (13.0-16.5); Lymphocyte % 5.9 % (19-41); Mean Corp Hgb Conc 34.4 g/dL (32-36); Mean Corpuscular Hgb 29.5 pg (27.0-32.0); Mean Corpuscular Volume 85.9 fL (80-94); Mean Platelet Vol. 10.1 fl (6.2-12.0); Monocyte% 5.3 % (0-10); NRBC Flagged by Analyzer 0 % (0-5); Neutrophil # 13.34 X10^3/uL (2.7-7.7); Neutrophil % 88.1 % (47-70); Platelet Count 293 K/mm3 (150-450); RBC Distribution Width CV 13.7 % (11.6-14.6); RBC Distribution Width SD 42.6 fl (35.1-43.9); Red Blood Count 5.25 M/mm3 (4.6-6.2); White Blood Count 15.2 K/mm3 (4.4-11.0)
[2022-03-07] MEDS: Ondansetron 4 MG/2 ML Vial IV (02:39)
--- NOTE | 2022-03-07 02:55 | RAD_ITS ---
STUDY: X-RAY CHEST REASON FOR EXAM: Male, 71 years old. Weakness TECHNIQUE: Single AP portable view of the chest. COMPARISON: None. FINDINGS: No confluent airspace opacity. There is no demonstrated pleural abnormality. Borderline cardiomegaly. Median sternotomy wires and coronary artery bypass graft clips noted. Normal mediastinum and ronald. Normal visualized pulmonary arteries. There is atherosclerotic calcification of the aortic arch . Normal visualized thoracic spine. Normal visualized ribs, clavicles, and shoulders. There is no demonstrated abnormality of the visualized soft tissue structures of the upper abdomen. RAD/Chest 1 View (Portable) IMPRESSION: No acute cardiopulmonary disease Electronically Signed: Mehul Moreno MD at 3:12 EDT ,
[2022-03-07 02:58] LABS: ALB/GLOB Ratio 0.8 RATIO (0.9-2.4); AST(SGOT) 37 U/L (15-37); Alanine Aminotransfer ALT/SGPT 34 U/L (16-61); Albumin, Serum 3.4 g/dL (3.2-5.0); Alkaline Phosphatase 75 U/L (45-117); Anion Gap 11 (5-15); BUN 15 mg/dL (7-18); BUN/Creat Ratio 12.5 RATIO (10-20); Calcium,Total 9.1 mg/dL (8.5-10.1); Chloride 106 mmol/L (98-107); EST Glomerular Filtration Rate 64 mL/min (>60); Est Glom Filt Rate - Afr Amer 77 mL/min (>60); Estimated Creatinine Clearance 54.32 ml/min; Globulin 4.2 g/dL (2.2-4.2); Glucose 122 mg/dL (74-106); Lipase 72 U/L (73-393); Potassium 4.7 mmol/L (3.5-5.1); Protein, Total 7.6 g/dL (6.4-8.2); Sodium Level 138 mmol/L (136-145); Troponin-I HS (w/2H Reflex) 20 pg/mL (3.0-78.0)
--- NOTE | 2022-03-07 03:03 | CT_ITS ---
STUDY: CT ABDOMEN AND PELVIS WITH CONTRAST REASON FOR EXAM: Male, 71 years old. Abdominal pain RADIATION DOSAGE (If Supplied By Facility): CTDIvol = ( 9.42 ) mGy, DLP = ( 1313.98 ) mGycm TECHNIQUE: Transaxial images were obtained from the dome of the diaphragm to the symphysis pubis without oral contrast. IV 100mL Isovue-300 was administered. Sagittal and coronal images were reconstructed. Individualized dose optimization techniques were used for this CT. COMPARISON: None. FINDINGS: The visualized lung bases are unremarkable. The visualized portions of the heart are within normal limits. Normal liver. Calcified stone within a nondistended, non the gallbladder. Normal spleen. Normal pancreas. Normal bilateral adrenal glands. Normal right kidney. Normal left kidney. Normal visualized stomach. Normal small intestine. Normal colon. The appendix is visualized and appears normal. Normal abdominal aorta. Normal inferior vena cava. Normal retroperitoneum. Normal urinary bladder. Normal abdominal wall. Mild multilevel degenerative change of the spine CT/Abdomen/Pelvis W IV Cont ONLY IMPRESSION: 1. No acute intra-abdominal abnormality. 2. Cholelithiasis with no evidence of acute cholecystitis. Electronically Signed: Mehul Morneo MD at 4:01 EDT ,
[2022-03-07 04:10] LABS: Bacteria 0 SEEN /hpf (None Seen); Mucous, Urine 0 SEEN /hpf (<or=2+); Red Blood Cells-Urine 0 SEEN /hpf (0-5); Squamous Epithelial Cells - UA 0 SEEN /hpf (0-5); White Blood Cells 0 SEEN /hpf (0-5)
[2022-03-07 04:17] LABS: Color, Urine Yellow (Yellow); Glucose, Dipstick Normal (Normal); Ketone-Dipstick 5 mg/dl (Negative); Leukocyte Esterase-Dipstick Negative /ul (Negative); Nitrite-Dipstick Negative (Negative); Occult Blood-Urine 10 /ul (Negative); Protein-Dipstick 100 mg/dl (Negative); Urine Bilirubin Dipstick Negative (Negative); Urine Clarity Clear (Clear); Urine Urobilinogen Normal (Normal)
[2022-03-07 04:35] LABS: Reflex Troponin-HS? (from REC) Y
[2022-03-07 04:51] LABS: Bedside Glucose 109 mg/dL (74-106)
[2022-03-07 05:09] LABS: Troponin-I HS 23 pg/mL (3.0-78.0)
[2022-03-07] MEDS: Metoprolol Tartrate 25 MG Tablet 50 MG PO (05:21)
[2022-03-07] MEDS: DiphenhydrAMINE 50 MG/ML Syringe IV (05:47)
[2022-03-07] MEDS: MethylPREDNISolone 125 MG/2 ML Vial IV (06:41)
[2022-03-07] MEDS: fentaNYL 100 MCG/2 ML Ampul 50 MCG IV (06:42)
--- NOTE | 2022-03-07 06:53 | ED.RN ---
PT PLACED ON O2 2L NC BECAUSE AFTER GIVEN THE FENTANYL THE PT IS NOW HAVING PERIODS OF APNEA. AWARE.
--- NOTE | 2022-03-07 08:27 | HP.PCM.HOS_ITS ---
HPI - General General Date of Admission: 03/07/22 Date of Service: 03/07/22 Chief Complaint: Hypoglycemia, EMS found glucose in 50s, mild abdominal discomfort left thigh rash HPI Narrative DULCE HAMILTON, is a 71 M Was brought to ED by EMS for hypoglycemia, glucose found 58. Patient is alert oriented but he said he did not feel hypoglycemic symptoms which normally has. He was mildly nauseated. Patient has not been feeling good for last couple days. Patient also has mild anxiety because of upcoming heart catheterization on coming Thursday for abnormal stress test. In ED,Patient complain of mild abdominal discomfort. Patient stated he feels mild abdominal upset with nausea but denies vomiting, abdominal pain, diarrhea or constipation. Patient also found to A. fib with RVR. His heart rate was 113 to 115/min. Blood pressure was elevated highest 171/111. In ED, he had CT abdomen with IV contrast which reported no acute intra- abdominal normality but he developed rash on posterior aspect of left thigh. He feels burning sensation. He states it was not there before CAT scan. He was given IV Benadryl and Solu-Medrol 125 mg in ED. Patient is further admitted [facility] Medical History (Updated 03/07/22 @ 16:[address] Chidi Adams MD) Arthritis Atherosclerotic heart disease of [place] coronary artery without angina pectoris Chronic atrial fibrillation Essential hypertension Mixed hyperlipidemia Nonrheumatic aortic (valve) stenosis DEMETRI on CPAP Type 2 diabetes mellitus Home Medications lisinopril 40 mg tablet 40 mg PO DAILY 07/08/19 [History Last Taken Unknown] metformin 500 mg tablet 1,000 mg PO BREAKFAST 07/14/19 [History Last Taken Unknown] atorvastatin 40 mg tablet 40 mg PO DAILY #90 tabs 01/11/20 [Rx Last Taken Unknown] metoprolol tartrate 50 mg tablet 50 mg PO BID 10/20/20 [History Last Taken Unknown] rivaroxaban 20 mg tablet (Xarelto) 20 mg PO DAILY #90 tabs 10/23/20 [Rx Last Taken Unknown] dulaglutide 1.5 mg/0.5 mL subcutaneous pen injector (Trulicity) 1.5 mg subcut QWEEK 02/07/22 [History Last Taken Unknown] gabapentin 300 mg capsule 300 mg PO BID 02/07/22 [History Last Taken Unknown] hydrocodone-acetaminophen 5-325mg 5mg-325mg 1 tab PO Q6H PRN Pain 03/07/22 [History Last Taken Unknown] insulin degludec 200 unit/mL (3 mL) subcutaneous pen (Tresiba FlexTouch U-200 insulin) 112 unit subcut DAILY 03/07/22 [History Last Taken Unknown] metformin 500 mg tablet 500 mg PO DINNER 03/07/22 [History Last Taken Unknown] Allergy/AdvReac Type Severity Reaction Status Date / Time No Known Allergies Allergy Verified 03/07/22 02:24 Family History Father Sudden cardiac , Onset Age: 49 Mother Alzheimer disease Sister Diabetes Surgical History History of coronary artery bypass surgery (~10/17/09) History of tonsillectomy Social History Smoking Status: Former smoker how long ago did patient quit smokin years ago alcohol intake: never substance use type: does not use caffeine: No Vital Signs Vital Signs Vital Signs: 03/07/22 02:18 03/07/22 04:35 03/07/22 06:14 Temperature 98.0 F Temperature Source Temporal Pulse Rate 113 H 114 H 115 H Respiratory Rate 18 18 26 H Blood Pressure 141/100 H 194/105 H Blood Pressure Mean 113 134 Pulse Ox 98 96 Oxygen Delivery Method Room Air Room Air Oxygen Flow Rate (L/min) 03/07/22 06:55 03/07/22 07:25 03/07/22 08:23 Temperature 98.2 F Temperature Source Oral Pulse Rate 101 H 101 H 90 Respiratory Rate 20 H 18 17 Blood Pressure 171/111 H 164/102 H 166/98 H Blood Pressure Mean 131 122 120 Pulse Ox 97 96 96 Oxygen Delivery Method Nasal Cannula Room Air Room Air Oxygen Flow Rate (L/min) 2 2 Weight Weight: 210 lb 2 oz Body Mass Index (BMI) 32.9 Results Lab / Micro Data Result Diagrams: 03/07/22 02:24 03/07/22 02:24 Labs: Laboratory Results - last 24 hr 03/07/22 02:24: WBC 15.2 H, RBC 5.25, Hgb 15.5, Hct 45.1, MCV 85.9, MCH 29.5, MCHC 34.4, RDW Std Deviation 42.6, RDW Coeff of Arya 13.7, Plt Count 293, MPV 10.1, Immature Gran % (Auto) 0.500, Neut % (Auto) 88.1 H, Lymph % (Auto) 5.9 L, [place] % (Auto) 5.3, Eos % (Auto) 0.0, Baso % (Auto) 0.2, Absolute Neuts (auto) 13.3 H, Absolute Lymphs (auto) 0.90, Nucleated RBC % 0 03/07/22 02:24: Sodium 138, Potassium 4.7, Chloride 106, Carbon Dioxide 21.0, Anion Gap 11, BUN 15, Creatinine 1.20, Estim Creat Clear Calc 54.32, Est GFR (MDRD) Af Amer 77, Est GFR (MDRD) Non-Af 64, BUN/Creatinine Ratio 12.5, Glucose 122 H, Calcium 9.1, Total Bilirubin 1.20 H, AST 37, ALT 34, Alkaline Phosphatase 75, Troponin I High Sens 20, Total Protein 7.6, Albumin 3.4, Globulin 4.2, Albumin/Globulin Ratio 0.8 L, Lipase 72 L 03/07/22 04:05: Urine Color Yellow, Urine Clarity Clear, Urine pH 6.0, Ur Specific [place] 1.010, Urine Protein 100 H, Urine Glucose (UA) Normal, Urine Ketones 5 H, Urine Occult Blood 10 H, Urine Nitrite Negative, Urine Bilirubin Negative, Urine Urobilinogen Normal, Ur Leukocyte Esterase Negative, Urine RBC 0 SEEN, Urine WBC 0 SEEN, Ur Squamous Epith Cells 0 SEEN, Urine Bacteria 0 SEEN, Urine Mucus 0 SEEN 03/07/22 04:30: POC Glucose 109 H 03/07/22 04:48: Troponin I High Sens 23 Micro: Microbiology 03/07/22 02:33 Nasal Secretion SARS-CoV-2 Antigen (Rapid) - Final Rhythm Strip Rhythm Strip: A-fib Rate: 119 Ectopy: None Radiology Impression Chest X-Ray 03/07/22 02:55 IMPRESSION: No acute cardiopulmonary disease Electronically Signed: Mehul Moreno MD at 3:12 EDT , Abdomen/Pelvis CT 03/07/22 03:03 IMPRESSION: 1. No acute intra-abdominal abnormality. 2. Cholelithiasis with no evidence of acute cholecystitis. Electronically Signed: Mehul Moreno MD at 4:01 EDT , Assessment & Plan Assessment/Plan (1) Allergic rash present on examination: PLAN: Plan This is 62 now patient came to ED for hypoglycemia, mild abdominal discomfort but developed left thigh redness after IV contrast 1. Most probably allergic rash of left posterior thigh: On exam, there is no tenderness, induration or swelling of the left posterior thigh and he developed after CT IV contrast. Continue Benadryl and IV Solu-Medrol. Patient has mild leukocytosis but I think it is due to inflammatory. It is mainly neutrophilic. Venous duplex negative for DVT of both lower extremities. Monitor clinically for rash and if it gets worse with tenderness and swelling, will start antibiotic. 2. Hypoglycemia with history of diabetes mellitus type 2: Hypoglycemia has resolved. Glucose 122. Accu-Chek insulin coverage Humalog sliding scale. Hold scheduled insulin. 3. Mild abdominal discomfort, exact etiology unclear: I think patient might have gastroparesis as he complains of bloating and abdominal discomfort. CT abdomen with IV contrast did not show any acute abnormality but cholelithiasis without cholecystitis. Outpatient evaluation for gastroparesis. 4. Atherosclerotic heart disease: No chest pain or shortness of breath. Continue home medication. Chest x-ray individually reviewed and shows no acute cardiopulmonary disease 5. Chronic A. fib with RVR on Xarelto with aortic stenosis: Patient heart rate in the ED was 114/min. Heart rate controlled about 90/min. Increase metoprolol 75 mg p.o. twice daily. Twelve-lead EKG reviewed shows A. fib 119 bpm, QTC 436 ms, nonspecific ST-T abnormality. Last echo in January 2022 reported EF 55%, moderate to severe aortic valve stenosis, mild MR, moderate TR, RVSP 24 mmHg. 6. Other chronic comorbidities include obstructive sleep apnea on CPAP and dyslipidemia and essential hypertension: Blood pressure is controlled. Home medication reconciliation done. Living will/advanced directive/end of life care: Patient does not have living will or advanced directive. After discussion of benefits/risks procedures involved with full code, DNR CC arrest and DNR CC, the patient opted for full c ode. Patient does want artificial life support including intubation, tube feed, ventilator and/chest compression, central venous catheter, vasopressor and DC shock if needed Total time spent in [id number] encounter in discussion of advanced directive 16 minutes. Clinical Impression(s) from Imaging Studies Chest X-Ray 03/07/22 02:55 IMPRESSION: No acute cardiopulmonary disease Abdomen/Pelvis CT 03/07/22 03:03 IMPRESSION: 1. No acute intra-abdominal abnormality. 2. Cholelithiasis with no evidence of acute cholecystitis. Venous Doppler Study 03/07/22 11:17 Interpretation Summary No evidence for acute deep venous thrombosis bilateral lower extremities with patent and compressible bilateral great saphenous veins. Charges/Coding Visit Charges OBSV E&M: 03776 Initial observation care L3 Procedures Hospitalists Procedures: 07259 Advncd Care Plan 30 Min
[2022-03-07 08:55] LABS: Lactic Acid 1.2 mmol/L (0.4-1.9)
[2022-03-07 09:11] LABS: Magnesium 1.7 mg/dL (1.6-2.6); Phosphorus 3.5 mg/dL (2.5-4.9)
[2022-03-07] MEDS: Lactated Ringers 1,000 ML 100 ML IV (10:45)
[2022-03-07] MEDS: Morphine 2 MG/ML Syringe IV (10:45)
[2022-03-07] MEDS: proCHLORPERazine 10 MG/2 ML Vial 5 MG IV (10:46)
--- NOTE | 2022-03-07 11:17 | VDLE_ITS ---
Reason For Study: SWELLING RIGHT LEFT GSV is normal. GSV is normal. CFV is compressible, spontaneous, phasic, CFV is compressible, spontaneous, phasic, competent and demonstrates normal competent, and demonstrates normal augmentation. augmentation. FV is compressible, spontaneous, phasic, FV is compressible, spontaneous, phasic, competent and demonstrates normal competent and demonstrates normal augmentation. augmentation. POP V is compressible, spontaneous, phasic, POP V is compressible, spontaneous, phasic, competent and demonstrates normal competent and demonstrates normal augmentation. augmentation. T/P Trunk is compressible. T/P Trunk is compressible. PTV is compressible. PTV is compressible. RT PerV is compressible. LT PerV is compressible. Procedure This is a venous duplex using B-mode, color flow and spectral Doppler. Exam performed portable in patient room. A preliminary report was called and/or faxed to [facility]. VL/Venous Duplex US - [facility] Interpretation Summary No evidence for acute deep venous thrombosis bilateral lower extremities with p atent and compressible bilateral great saphenous veins. Ordering Physician: Chidi Adams Referring Physician: Ricci Rick Performed By: Yancy Churchill, SALONICS, RVT
[2022-03-07 12:05] LABS: Bedside Glucose 88 mg/dL (74-106)
[2022-03-07] MEDS: Insulin Lispro 100 UNIT/ML INSULN.PEN SC ×2 (16:29→21:07)
[2022-03-07] MEDS: Rivaroxaban 20 MG Tablet PO (16:29)
[2022-03-07 17:15] LABS: Bedside Glucose 165 mg/dL (74-106)
--- NOTE | 2022-03-07 17:15 | CASEMGMT ---
FLO LEA NOTE: Intro role of CM to patient and BARRON form explained re: Observation status for treatment of cellulitis.? Explained hospitalization will be paid per?his insurance policy for Outpatient billing?and condition will continue to be evaluated for Inpt necessity. Also let pt know that [facility] sends paper in the billing packet with their phone number if questions arise. Pt verbalizes understanding and does not have further questions. ?Form signed, form placed on chart and copy given to pt. Cecil BARON RN, CM
[2022-03-07] MEDS: Gabapentin 300 MG Capsule PO (21:00)
[2022-03-07] MEDS: 0.9% Saline Lock 10 ML Syringe IV (21:01)
[2022-03-07] MEDS: Metoprolol Tartrate 25 MG Tablet 75 MG PO (21:06)
[2022-03-07 22:15] LABS: Bedside Glucose 299 mg/dL (74-106)
[2022-03-08] VITALS (8 sets, daily range): BP systolic 124–165; BP diastolic 87–102; PULSE 79–96; RESP 16–20; TEMP 36.6–36.9; O2SAT 94–97
[2022-03-08] MEDS: Insulin Lispro 100 UNIT/ML INSULN.PEN SC ×2 (06:45→11:37)
[2022-03-08 07:10] LABS: Bedside Glucose 208 mg/dL (74-106)
[2022-03-08 08:13] LABS: Absolute Lymphocyte Count 0.61 X10^3/uL (0.83-4.51); Absolute Neutrophil Count 12.9 X10^3/uL (2.0-7.7); Hematocrit 43.9 % (40-54); Hemoglobin 14.3 g/dL (13.0-16.5); Lymphocyte # 0.61 X10^3/ul (0.83-4.51); Lymphocyte % 4.3 % (19-41); Mean Corp Hgb Conc 32.6 g/dL (32-36); Mean Corpuscular Hgb 29.1 pg (27.0-32.0); Mean Corpuscular Volume 89.4 fL (80-94); Mean Platelet Vol. 10.2 fl (6.2-12.0); Monocyte# 0.56 X10^3/uL; Monocyte% 3.9 % (0-10); NRBC Flagged by Analyzer 0 % (0-5); Neutrophil # 12.93 X10^3/uL (2.7-7.7); Neutrophil % 91.1 % (47-70); Platelet Count 284 K/mm3 (150-450); RBC Distribution Width CV 14.2 % (11.6-14.6); RBC Distribution Width SD 46.4 fl (35.1-43.9); Red Blood Count 4.91 M/mm3 (4.6-6.2); White Blood Count 14.2 K/mm3 (4.4-11.0)
[2022-03-08 08:22] LABS: Anion Gap 10 (5-15); BUN 37 mg/dL (7-18); BUN/Creat Ratio 23.6 RATIO (10-20); Calcium,Total 8.6 mg/dL (8.5-10.1); Chloride 107 mmol/L (98-107); Creatinine, Serum 1.57 mg/dL (0.70-1.30); EST Glomerular Filtration Rate 47 mL/min (>60); Est Glom Filt Rate - Afr Amer 57 mL/min (>60); Estimated Creatinine Clearance 41.52 ml/min; Glucose 212 mg/dL (74-106); Potassium 4.7 mmol/L (3.5-5.1); Sodium Level 137 mmol/L (136-145)
[2022-03-08] MEDS: Metoprolol Tartrate 25 MG Tablet 75 MG PO (09:17)
[2022-03-08] MEDS: Atorvastatin Calcium 40 MG Tablet PO (09:18)
[2022-03-08] MEDS: 0.9% Saline Lock 10 ML Syringe IV (09:18)
--- NOTE | 2022-03-08 11:00 | DCINST_ITS ---
Discharge Instructions Diet Discharge Diet: 1800 Calorie Control Diet and 2000 mg Sodium Diet Activity Discharge Activity: Return to Normal Activity Weight Bearing Status: Weight bearing as tolerated Dressing / Incision Call your doctor if you observe: Fever of 101 or Higher, Coldness, Increased Pain, Numbness or Tingling, Change in Color, Inability to urinate, Inability to have a bowel movement, Shortness of breath, Dizziness, Fainting spells, Swelling in the ankles, Chest pain, Prolonged hiccupping, Increased palpitations (irregular heartbeat) and Calf discomfort Follow Up Care Test Results: Test results from this visit will be discussed in further detail at your follow- up appointment, if applicable. Discharge Plan Admission Admit Date/Time: 03/07/22 07:52 Primary Reason for Your Visit: Allergic rash and PALAK due to REMINGTON from IV contrast Attending Provider: Chidi Adams Primary Care Provider: Ricci Rick Instructions Additional Instructions / Restrictions: Advised BMP on 03/10 prior to cardiac cath on 03/11. Patient is discharged on Medrol Dosepak which will act as premedication for allergic rash prior to cardiac cath which is scheduled on 03/11. Patient instructed to call Dr. Mojica to let him know. Discharge Orders/Prescriptions Prescriptions: New diphenhydramine HCl 12.5 mg tablet,chewable 12.5 mg PO Q6H PRN (Reason: allergic rash) Qty: 30 0RF Rx Instructions: for allergic rash. methylprednisolone [Medrol (Jaron)] 4 mg tablets,dose pack 4 mg PO DAILY Qty: 21 0RF Rx Instructions: Take it as directed. Continued gabapentin 300 mg capsule 300 mg PO BID atorvastatin 40 mg tablet 40 mg PO DAILY Qty: 90 3RF Trulicity 1.5 mg/0.5 mL pen injector 1.5 mg subcut QWEEK Label Comments: INJECT 1.5 MG SUBCUTANEOUSLY ONE TIME A WEEK. INJECT ONCE PER WEEK. DISCARD PEN AFTER Rx Instructions: takes on tuesdays metoprolol tartrate 50 MG tablet 50 mg PO BID hydrocodone-acetaminophen 5-325 mg Tablet 1 tab PO Q6H PRN (Reason: Pain) Xarelto 20 mg tablet 20 mg PO DAILY Qty: 90 3RF Rx Instructions: must administer with evening meal Changed Tresiba FlexTouch U-200 200 unit/mL (3 mL) Insulin Pen 100 unit SUBCUT DAILY Qty: 9 0RF Rx Instructions: Hold if glucose less than 130 mg/dl. Held lisinopril 40 mg tablet 40 mg PO DAILY Hold Instructions: Hold for 7 days metformin 500 mg tablet 1,000 mg PO BREAKFAST Hold Instructions: Hold for 7 days metformin 500 mg Tablet 500 mg PO DINNER Hold Instructions: Hold for 7 days Referrals / Follow Up: Ricci Rick MD [Primary Care Provider] - Disposition Disposition (needs filled in before D/C Order can be placed): Home, Self Care
--- NOTE | 2022-03-08 11:23 | PCM.DC.SUM ---
Providers Date of Admission: 03/07/22 Date of Discharge: 03/08/22 Primary Care Physician: Dr. Ricci Rick MD Reason For Visit: CELLULITIS Diagnosis Discharge Diagnosis (1) Allergic rash present on examination: Status: Acute Code(s): T78.40XA - Allergy, unspecified, initial encounter (2) Contrast dye induced nephropathy: Status: Acute Code(s): N14.1 - Nephropathy induced by other drugs, medicaments and biological substances; T50.8X5A - Adverse effect of diagnostic agents, initial encounter Medications at Discharge Home Medications lisinopril 40 mg tablet 40 mg PO DAILY blood pressure 07/08/19 metformin 500 mg tablet 1,000 mg PO BREAKFAST diabetes 07/14/19 atorvastatin 40 mg tablet 40 mg PO DAILY #90 tabs 01/11/20 metoprolol tartrate 50 mg tablet 50 mg PO BID blood pressure 10/20/20 rivaroxaban 20 mg tablet (Xarelto) 20 mg PO DAILY #90 tabs 10/23/20 dulaglutide 1.5 mg/0.5 mL subcutaneous pen injector (Trulicity) 1.5 mg subcut QWEEK diabetes 02/07/22 gabapentin 300 mg capsule 300 mg PO BID nerve pain 02/07/22 hydrocodone-acetaminophen 5-325mg 5mg-325mg 1 tab PO Q6H PRN Pain 03/07/22 metformin 500 mg tablet 500 mg PO DINNER diabetes 03/07/22 diphenhydramine HCl 12.5 mg chewable tablet 12.5 mg PO Q6H PRN allergic rash #30 tabs 03/08/22 insulin degludec 200 unit/mL (3 mL) subcutaneous pen (Tresiba FlexTouch U-200 insulin) 100 unit (0.5 mL) subcut DAILY #9 mL 03/08/22 methylprednisolone 4 mg tablets in a dose pack (Medrol (Jaron)) 4 mg PO DAILY #21 tabs 03/08/22 Hospital Course Summary of Care Provided Hospital Course: This is 71 year patient came to ED for hypoglycemia, mild abdominal discomfort but developed left thigh redness after IV contrast 1. Most probably allergic rash of left posterior thigh: Patient was admitted in PCU. The rash has faded out and resolved. Patient was treated with Benadryl and IV Solu-Medrol. Prescription for Benadryl and Medrol Dosepak given. Patient has mild leukocytosis but I think it is due to inflammatory/allergic. It is mainly neutrophilic. Leukocytosis improving. Venous duplex negative for DVT of both lower extremities. As the rash has resolved therefore no cellulitis, cellulitis ruled out. 2. Hypoglycemia with history of diabetes mellitus type 2: Hypoglycemia has resolved. Glucose 122. Accu-Chek insulin coverage Humalog sliding scale. Hold scheduled insulin. 3. PALAK from REMINGTON: Patient BUN/creatinine was normal at the time of admission 13/07.2. Repeat labs today shows BUN 37, creatinine 1.57 therefore patient has contrast-induced nephropathy from IV contrast. Patient does not have new lower urinary tract symptoms of burning micturition to account for UTI or other diagnoses. IV fluid normal saline to 50 mill per hour for 4 hours. Discussed with the scouring train operator chief Dr. Dr. Blank and advised to follow-up in 1-2. BMP on 03/10/2022 prior to cardiac cath and follow-up with Dr. Mojica. 4. Mild abdominal discomfort, exact etiology unclear: I think patient might have gastroparesis as he complains of bloating and abdominal discomfort. CT abdomen with IV contrast did not show any acute abnormality but cholelithiasis without cholecystitis. Outpatient evaluation for gastroparesis. 5. Atherosclerotic heart disease: No chest pain or shortness of breath. Continue home medication. Chest x-ray individually reviewed and shows no acute cardiopulmonary disease. Patient is scheduled for cardiac cath on 03/11/[address] Mojica. I left a voice message with Dr. Mojica 6. Chronic A. fib with RVR on Xarelto with aortic stenosis: Patient heart rate in the ED was 114/min. Heart rate controlled about 90/min. Increase metoprolol 75 mg p.o. twice daily. Twelve-lead EKG reviewed shows A. fib 119 bpm, QTC 436 ms, nonspecific ST-T abnormality. Last echo in January 2022 reported EF 55%, moderate to severe aortic valve stenosis, mild MR, moderate TR, RVSP 24 mmHg. Other chronic comorbidities include obstructive sleep apnea on CPAP and dyslipidemia and essential hypertension: Blood pressure is controlled. Home medication reconciliation done. Living will/advanced directive/end of life care: Patient does not have living will or advanced directive. After discussion of benefits/risks procedures involved with full code, DNR CC arrest and DNR CC, the patient opted for full code. Patient does want artificial life support including intubation, tube feed, ventilator and/chest compression, central venous catheter, vasopressor and DC shock if needed Total time spent in [id number] encounter in discussion of advanced directive 16 minutes. Clinical Impression(s) from Imaging Studies Chest X-Ray 03/07/22 02:55 IMPRESSION: No acute cardiopulmonary disease Abdomen/Pelvis CT 03/07/22 03:03 IMPRESSION: 1. No acute intra-abdominal abnormality. 2. Cholelithiasis with no evidence of acute cholecystitis. Venous Doppler Study 03/07/22 11:17 Interpretation Summary No evidence for acute deep venous thrombosis bilateral lower extremities with patent and compressible bilateral great saphenous veins. Physical Exam Narrative Seen and examined on the day of discharge General: Alert, Oriented x3, Cooperative. No fever. HEENT: Atraumatic, PERRLA, EOMI, Normocephalic Oral: Oral mucosa dry. No Gingival or Mucosal Lesions/ Ulcerations Neck: Supple, No JVD, Negative Carotid Bruits Lungs: Air entry diminished in bilateral lung bases. No crepitation/rhonchi Cardiovascular:No tachycardia. Sinus rhythm. Normal S1, Normal S2, ejection systolic murmur over right second ICS. Abdomen: Bowel Sounds Present, Soft, Non Tender, Non-Distended. No palpable mass. : No renal angle tenderness. No suprapubic tenderness. Extremities: No edema, Capillary Refill Less than 3 Seconds Skin: Erythematous rash over posterior aspect of thigh has faded and resolved. Musculoskeletal: No Tenderness to Palpation of Joints or Extremities Neurological: Cranial nerves II-XII grossly intact, DTR 2+/4 and Symmetrical, Neuro grossly intact Psych/Mental Status: Normal Affect, Appropriate. Weight / BMI Weight Weight: 197 lb 5.019 oz Body Mass Index (BMI) 30.7 ABG / Lab / Microbiology Data Result Diagrams: 03/08/22 07:11 03/08/22 07:11 Laboratory: Laboratory Results - last 24 hr 03/07/22 11:42: POC Glucose 88 03/07/22 16:27: POC Glucose 165 H 03/07/22 21:05: POC Glucose 299 H 03/08/22 06:43: POC Glucose 208 H 03/08/22 07:11: WBC 14.2 H, RBC 4.91, Hgb 14.3, Hct 43.9, MCV 89.4, MCH 29.1, MCHC 32.6 D, RDW Std Deviation 46.4 H, RDW Coeff of Arya 14.2, Plt Count 284, MPV 10.2, Immature Gran % (Auto) 0.700, Neut % (Auto) 91.1 H, Lymph % (Auto) 4.3 L, Smyth % (Auto) 3.9, Eos % (Auto) 0.0, Baso % (Auto) 0.0, Absolute Neuts (auto) 12.9 H, Absolute Lymphs (auto) 0.61 L, Nucleated RBC % 0 03/08/22 07:11: Sodium 137, Potassium 4.7, Chloride 107, Carbon Dioxide 20.0 L, Anion Gap 10, BUN 37 H, Creatinine 1.57 H, Estim Creat Clear Calc 41.52, Est GFR (MDRD) Af Amer 57 L, Est GFR (MDRD) Non-Af 47 L, BUN/Creatinine Ratio 23.6 H, Glucose 212 H, Calcium 8.6 Microbiology: Microbiology 03/07/22 02:33 Nasal Secretion SARS-CoV-2 Antigen (Rapid) - Final Radiography Diagnostic Testing: Radiology Impression Venous Doppler Study 03/07/22 11:17 Interpretation Summary No evidence for acute deep venous thrombosis bilateral lower extremities with patent and compressible bilateral great saphenous veins. Ordering Physician: Chidi Adams Referring Physician: Ricci Rick Performed By: Yancy Churchill, ANDRE, RVT D/C Instructions Discharge Diet: 1800 Calorie Control Diet and 2000 mg Sodium Diet Weight Bearing Status: Weight bearing as tolerated Call your doctor if you observe: Fever of 101 or Higher, Coldness, Increased Pain, Numbness or Tingling, Change in Color, Inability to urinate, Inability to have a bowel movement, Shortness of breath, Dizziness, Fainting spells, Swelling in the ankles, Chest pain, Prolonged hiccupping, Increased palpitations (irregular heartbeat) and Calf discomfort Meaningful Use Info Meaningful Use Diagnoses (Choose all that apply): None applicable Discharge Plan Admission Admit Date/Time: 03/07/22 07:52 Primary Reason for Your Visit: Allergic rash and PALAK due to REMINGTON from IV contrast Attending Provider: Chidi Adams Primary Care Provider: Ricci Rick Instructions Additional Instructions / Restrictions: Advised BMP on 03/10 prior to cardiac cath on 03/11 and follow-up with Dr. Mojica/Dr. Blank. Patient is discharged on Medrol Dosepak which will act as premedication for allergic rash prior to cardiac cath which is scheduled on 03/11. Patient instructed to call Dr. Mojica to let him know. Discharge Orders/Prescriptions Prescriptions: New diphenhydramine HCl 12.5 mg tablet,chewable 12.5 mg PO Q6H PRN (Reason: allergic rash) Qty: 30 0RF Rx Instructions: for allergic rash. methylprednisolone [Medrol (Jaron)] 4 mg tablets,dose pack 4 mg PO DAILY Qty: 21 0RF Rx Instructions: Take it as directed. Continued gabapentin 300 mg capsule 300 mg PO BID atorvastatin 40 mg tablet 40 mg PO DAILY Qty: 90 3RF Trulicity 1.5 mg/0.5 mL pen injector 1.5 mg subcut QWEEK Label Comments: INJECT 1.5 MG SUBCUTANEOUSLY ONE TIME A WEEK. INJECT ONCE PER WEEK. DISCARD PEN AFTER Rx Instructions: takes on tuesdays metoprolol tartrate 50 MG tablet 50 mg PO BID hydrocodone-acetaminophen 5-325 mg Tablet 1 tab PO Q6H PRN (Reason: Pain) Xarelto 20 mg tablet 20 mg PO DAILY Qty: 90 3RF Rx Instructions: must administer with evening meal Changed Tresiba FlexTouch U-200 200 unit/mL (3 mL) Insulin Pen 100 unit SUBCUT DAILY Qty: 9 0RF Rx Instructions: Hold if glucose less than 130 mg/dl. Held lisinopril 40 mg tablet 40 mg PO DAILY Hold Instructions: Hold for 7 days metformin 500 mg tablet 1,000 mg PO BREAKFAST Hold Instructions: Hold for 7 days metformin 500 mg Tablet 500 mg PO DINNER Hold Instructions: Hold for 7 days Other Ambulatory Orders: Basic Metabolic Profile (BMP) (Routine) Timeframe: [id number] Location: Laboratory Ordered By: Dr. Chidi Adams Referrals / Follow Up: Ricci Rick MD [Primary Care Provider] - Dipika Blank MD [Med Staff - Consulting] - Within 1 Week (for REMINGTON, follow-up with BMP) Carlos Mojica MD [Med Staff - Active Staff] - In 1 Week (Scheduled cardiac cath on 03/11/2022) Disposition Disposition (needs filled in before D/C Order can be placed): Home, Self Care
[2022-03-08] MEDS: 0.9% Normal Saline 1,000 ML 250 ML IV (11:34)
[2022-03-08 12:00] LABS: Bedside Glucose 219 mg/dL (74-106)
--- NOTE | 2022-03-08 15:24 | CM.ED ---
senior software quality analyst advised that daughter said that patient can't go home as he is hallucinating and has no food and has no way home. SW met with patient. He voiced that he feels that this is a terrible hospital and the hospital from [facility]. Patient said that he feels that there is mass confusion but then voiced he feels like he is getting 50 different answers. Patient was able to state that he realized there is a staff shortage. Patient said that he feels that his daughter is getting the run around. Patient said that he has a appt to see the aircraft pneudraulic systems mechanic at 6:30am on Thursday for a cath. Patient reports that he resides at [facility]. Patient said that he was concerned as he was hallucinating. SW asked what that meant to patient and patient said I was talking to the nurse as she looked and is built like my daughter. Patient said that she did talk to me differently as she had a southern accent and called him sugar and sweetie. Patient said that the nurse had the same body type and hair color as his kylahaupaoter. Patient was able to tell this bond underwriter the president, day of week, date, and where he was at. SW discussed counseling resources due to the stress patient has been experiencing and he said I am fine.. I can handle it. Patient said that he has a friend, Tomer, who talks to daily for 2 hours. Patient said that the bright side of this all was that he had contact with his sister who he has not spoke to for numerous years. Patient said that he feels safe going home. SW asked patient about having food and he said that he has plenty of food. SW offered information on Meals on Wheels but he declined stating I like to shop. Patient said that he has $65 for a cab home as well as his debit card. Patient was provided information and handout on Directions Home and medic alert systems. Patient agreed to a referral for [facility]. No other issues or concerns voiced. SW does not believe patient was hallucinating as there was no other evidence of hallucinations while speaking to patient. Per RN patient is alert and oriented x3. Plan: Home with resources. Patient will be referred to [facility] Aylin BURGESS
--- NOTE | 2022-03-08 17:02 | CASEMGMT ---
Addendum entered by Aylin Mckenzie 03/08/22 20:18: During the conversation patient voiced that his daughter has been to his apartment as much as I could count on one hand in 14 years he lived in [place]. He then said how he had taken her across [place] to visit the [employer] x2. Patient was able to voice his favorite [place]. Patient also voiced that he does not want MOW as he enjoys grocery shopping. Patient said that no one is talking to my daughter and social media marketing manager explained that staff has talked to his daughter numerous times. SW later overheard patient voicing that this is the worst hospital and he was in [facility] with homeless people and got better treatment. Addendum entered by Aylin Mckenzie 03/08/22 20:14: Patient said that he had $65 and debit card to pay for a ride home. Patient agreed to pay for the taxi ride home. SW made a referral to [facility]. Aylin BURGESS Original Note: SW met with patient and advised him that the staff is working on a ride. Patient said well I am about ready to walk out of here. SW explained that the hospital staff has no control over transport truck driver availability. SW spoke to patient and advised him that patient's ride will be at 5pm. Patient said that he can walk around. Patient stated he is comfortable going home. Patient said that he is safe going home. Patient reports he is looking forward to a shower at his house. Plan: Home at discharge Aylin BURGESS
== END 2022-03-08 11:18 | disposition home or self-care (01) ==
LOC: ED 08:26 → PCU 08:35
PROVIDERS: Admitting Provider Internal Medicine; Emergency Provider Emergency Medicine; PCP Family Medicine; Visit Provider Internal Medicine
DX: N14.1 Nephropathy induced by other drugs, medicaments and biological substances (principal); N17.9 Acute kidney failure, unspecified; E11.649 Type 2 diabetes mellitus with hypoglycemia without coma; I48.20 Chronic atrial fibrillation, unspecified; Z79.4 Long term (current) use of insulin; T50.8X5A Adverse effect of diagnostic agents, initial encounter; R06.02 Shortness of breath; R94.39 Abnormal result of other cardiovascular function study; L03.116 Cellulitis of left lower limb; I10 Essential (primary) hypertension; E78.2 Mixed hyperlipidemia; I25.10 Atherosclerotic heart disease of native coronary artery without angina pectoris; Z87.891 Personal history of nicotine dependence; G47.33 Obstructive sleep apnea (adult) (pediatric); Z95.1 Presence of aortocoronary bypass graft; Z79.899 Other long term (current) drug therapy; Z79.01 Long term (current) use of anticoagulants
CPT/HCPCS: 36415; 71045; 74177; 80048; 80053; 81001; 82962; 83605; 83690; 83735; 84100; 84484; 85025; 87040; 87811; 93005; 93970; 96361; 96365; 96366; 96375; 96376; 97162; 97166; 99218; 99285; J7030; J7050; J7120; Q9967; A4216; G0378; J0295; J2405

== ENCOUNTER 2023-05-03 13:45 | Emergency (ER) | payer MEDICARE, SELFPAY ==
[2023-05-03 13:48] VITALS: BP 171/110; PULSE 84; RESP 18; TEMP 36.2; O2SAT 100
[2023-05-03 14:10] VITALS: BMI 29.9
--- NOTE | 2023-05-03 14:38 | RAD_ITS ---
INDICATION: cough EXAMINATION/TECHNIQUE: X-RAY - XR Chest 2 Views COMPARISON: Prior study dated: 03/07/2022. FINDINGS: LINES/DEVICES: None. LUNGS: No consolidation, edema or effusion. No pneumothorax. MEDIASTINUM AND CARDIOVASCULAR STRUCTURES: Status post median sternotomy. Aortic stent. BONES AND SOFT TISSUES: Unremarkable. RAD/Chest PA and Lateral IMPRESSION: No radiographic evidence of acute cardiopulmonary disease. Electronically Signed: Laz Gupta MD at 15:40 EST ,
--- NOTE | 2023-05-03 14:39 | EX.ED.DYSGE1 ---
HPI <FAITH Leung - Last Filed: 05/03/23 17:53> History of Present Illness Chief Complaint: GI Bleed Narrative Narrative: Patient is a 72-year-old male on Xarelto, A-fib, atrial valve replacement type 2 diabetes who presents the emergency department with blood in his sputum after clearing his throat. Patient states he does have this on occasion where is usually streaked with blood however this morning when he clears his throat there was more blood than sputum. Secondary to his recent surgery, he is here for reevaluation. He denies any chest pain, he denies any shortness of breath, fever chills cough. PFS <FAITH Leung - Last Filed: 05/03/23 17:53> [facility] Medical History (Updated 05/03/23 @ 17:53 by FAITH Leung) Arthritis Atherosclerotic heart disease of [place] coronary artery without angina pectoris Chronic atrial fibrillation Essential hypertension Leukocytosis Mixed hyperlipidemia Nonrheumatic aortic (valve) stenosis DEMETRI on CPAP Type 2 diabetes mellitus Home Medications lisinopril 40 mg tablet 40 mg PO DAILY blood pressure 07/08/19 [History Last Taken Unknown] metformin 500 mg tablet 1,000 mg PO BREAKFAST diabetes 07/14/19 [History Last Taken Unknown] atorvastatin 40 mg tablet 40 mg PO DAILY #90 tabs 01/11/20 [Rx Last Taken Unknown] metoprolol tartrate 50 mg tablet 50 mg PO BID blood pressure 10/20/20 [History Last Taken Unknown] rivaroxaban 20 mg tablet (Xarelto) 20 mg PO DAILY #90 tabs 10/23/20 [Rx Last Taken Unknown] dulaglutide 1.5 mg/0.5 mL subcutaneous pen injector (Trulicity) 1.5 mg subcut QWEEK diabetes 02/07/22 [History Last Taken Unknown] gabapentin 300 mg capsule 300 mg PO BID nerve pain 02/07/22 [History Last Taken Unknown] hydrocodone-acetaminophen 5-325mg 5mg-325mg 1 tab PO Q6H PRN Pain 03/07/22 [History Last Taken Unknown] metformin 500 mg tablet 500 mg PO DINNER diabetes 03/07/22 [History Last Taken Unknown] diphenhydramine HCl 12.5 mg chewable tablet 12.5 mg PO Q6H PRN allergic rash #30 tabs 03/08/22 [Rx Last Taken Unknown] insulin degludec 200 unit/mL (3 mL) subcutaneous pen (Tresiba FlexTouch U-200 insulin) 100 unit (0.5 mL) subcut DAILY #9 mL 03/08/22 [Rx Last Taken Unknown] methylprednisolone 4 mg tablets in a dose pack (Medrol (Jaron)) 4 mg PO DAILY #21 tabs 03/08/22 [Rx Last Taken Unknown] Allergy/AdvReac Type Severity Reaction Status Date / Time Iodinated Contrast Media Allergy Inflammation Verified 05/03/23 13:48 of vein Family History Father Sudden cardiac , Onset Age: 49 Mother Alzheimer disease Sister Diabetes Surgical History History of coronary artery bypass surgery (~10/17/09) History of tonsillectomy Social History Smoking Status: Former smoker how long ago did patient quit smokin years ago alcohol intake: never substance use type: does not use caffeine: No ROS <FAITH Leung - Last Filed: 05/03/23 17:53> ROS ED ROS Narrative Constitutional: Negative for fever, chills, weight loss, weakness Eyes: Negative for vision loss, vision change, double vision ENT: Negative for any sore throat, ear pain, congestion. Positive for bloody sputum Cardiovascular: Negative for any chest pain, tightness, palpitations Respiratory: Negative for any cough, sputum production, hemoptysis, dyspnea, dyspnea on exertion, orthopnea Gastrointestinal: Negative for any abdominal pain, nausea, vomiting, diarrhea, constipation, blood in stool, blood in vomit : Negative for any urinary frequency, dysuria, retention, blood in urine Muscle skeletal: Negative for any myalgias, arthralgias, neck pain, back pain Neurological: Negative for any headache, syncope, numbness or tingling, dizziness Skin: Negative for any rashes, lumps, itching, abrasions, lacerations Psychiatric: Negative for any depression, anxiety, stress, suicidal ideation, homicidal ideation Hematologic: Negative for any easy bruising, excessive bruising, easy bleeding Allergies: Negative for any eczema, hives, rash EXAM <FAITH Leung - Last Filed: 05/03/23 17:53> Physical Exam Narrative Exam Narrative: Vital signs reviewed. Patient is no obvious distress. Patient's vital signs are stable. HEET: Head normocephalic atraumatic, TMs clear bilaterally. Posterior pharynx is clear, moist mucous membranes. Nares clear bilaterally. Nares are clear, no dried blood. Posterior pharynx clear. Neck: Supple with no lymphadenopathy or tenderness. No signs of meningismus. Cardiac: Regular rate and rhythm no murmurs gallops or rubs, equal peripheral pulses bilaterally. Respiratory: Lungs clear to auscultation bilaterally. No chest tenderness. Abdomen: Soft, nontender, nondistended. No abdominal bruit or pulsatile masses. No hepatosplenomegaly Extremities: No peripheral edema, no signs of gross trauma or deformity. Active full range of motion of all extremities. Neuro: Cranial nerves II through XII intact, no focal neurological deficits. Skin: Clean dry and intact with no rash, purpura, petechiae, vesicles or pustules. Backs/flank: No CVA tenderness, no midline spinal tenderness, no deformity. Psych: Normal mood and affect. No SI, HI or acute psychosis. Const Vital Signs: 05/03/23 13:48 05/03/23 15:58 05/03/23 17:43 Temperature 97.2 F L Temperature Source Temporal Pulse Rate 84 73 71 Respiratory Rate 18 16 16 Blood Pressure 171/110 H 161/81 H 167/81 H Blood Pressure Mean 130 107 109 Pulse Ox 100 96 98 Oxygen Delivery Method Room Air Room Air Room Air Positive well nourished and well developed General Appearance ED: well developed <Dr. Lidia Collier DO - Last Filed: 05/09/23 01:59> Physical Exam Const Vital Signs: 05/03/23 13:48 05/03/23 15:58 05/03/23 17:43 Temperature 97.2 F L Temperature Source Temporal Pulse Rate 84 73 71 Respiratory Rate 18 16 16 Blood Pressure 171/110 H 161/81 H 167/81 H Blood Pressure Mean 130 107 109 Pulse Ox 100 96 98 Oxygen Delivery Method Room Air Room Air Room Air MDM <FAITH Leung - Last Filed: 05/03/23 17:53> MDM Radiography Diagnostic Testing: Clinical Impression(s) from Imaging Studies Chest X-Ray 05/03/23 14:38 IMPRESSION: No radiographic evidence of acute cardiopulmonary disease. Electronically Signed: Laz Gupta MD at 15:40 EST , Chest CT 05/03/23 16:26 IMPRESSION: Small left pleural effusion and tiny right pleural effusion. Electronically Signed: Wilber Bailon MD at 17:50 EST , Treatment and Re-Evaluation :: Patient appears generally well, patient appears nontoxic, vital signs are stable. Patient presents to the emergency department with complaints of blood in his sputum after he clears his throat, not coughing. Patient was generally well. HEENT exam was grossly unremarkable. Patient no evidence of bleeding, dried blood. Patient will receive a two-view chest x-ray to ensure there is no pneumonia. Patient's chest x-ray showed no radiographic evidence of acute cardiopulmonary disease. This was inter by the ER physician. Patient CT scan of the chest without contrast showed a small left pleural effusion and tiny right pleural effusion. No acute process. At this time, there is no evidence of any trauma, hemorrhagic emergency. Patient will follow-up outpatient. All questions were answered, patient stable for discharge. <Dr. Lidia Collier, DO - Last Filed: 05/09/23 01:59> [facility] Radiography Diagnostic Testing: Clinical Impression(s) from Imaging Studies Chest X-Ray 05/03/23 14:38 IMPRESSION: No radiographic evidence of acute cardiopulmonary disease. Electronically Signed: Laz Gupta MD at 15:40 EST , Chest CT 05/03/23 16:26 IMPRESSION: Small left pleural effusion and tiny right pleural effusion. Electronically Signed: Wilber Bailon MD at 17:50 EST , Treatment and Re-Evaluation :: Patient appears generally well, patient appears nontoxic, vital signs are stable. Patient presents to the emergency department with complaints of blood in his sputum after he clears his throat, not coughing. Patient was generally well. HEENT exam was grossly unremarkable. Patient no evidence of bleeding, dried blood. Patient will receive a two-view chest x-ray to ensure there is no pneumonia. Patient's chest x-ray showed no radiographic evidence of acute cardiopulmonary disease. This was inter by the ER physician. Patient CT scan of the chest without contrast showed a small left pleural effusion and tiny right pleural effusion. No acute process. At this time, there is no evidence of any trauma, hemorrhagic emergency. Patient will follow-up outpatient. All questions were answered, patient stable for discharge. I have personally performed a face to face assessment of the patient and have reviewed the LON Note. I performed a substantive portion of the visit including all aspects of the following. My bucio findings include: History is patient is a 72-year-old male on Xarelto continue with hemoptysis. Is not clear if it is coming from his sinuses/nose or more from his throat/lungs. He tells me he was clearing his throat today and there was more blood than mucus. He does not feel that he was really coughing. No active bleeding at this time. No signs of epistaxis on exam. Initial chest x-ray reviewed by myself as well as radiology does not show any acute process. CT of the chest does show small left pleural effusion and tiny right pleural effusion but no large mass. Contrast is not used as patient does have an allergy. He has no further bleeding while in the emergency room and I do not think this is a large-volume hemoptysis. This possibly could be coming from his sinuses as he has been having a little bit of sinus congestion lately. At this time I think he stable for outpatient follow-up. He verbalizes given understand this plan. Discharged home in stable condition Other additions or changes: [None] Discharge Plan Triage Chief Complaint: GI Bleed ED Midlevel Provider: Carlos Abdul ED Provider: Lidia Collier Dx/Rx/DC Orders Clinical Impression: Bloody sputum Instructions: ED Hemoptysis Prescriptions: No Action lisinopril 40 mg tablet 40 mg PO DAILY Hold Instructions: Hold for 7 days metformin 500 mg tablet 1,000 mg PO BREAKFAST Hold Instructions: Hold for 7 days gabapentin 300 mg capsule 300 mg PO BID atorvastatin 40 mg tablet 40 mg PO DAILY Qty: 90 3RF Trulicity 1.5 mg/0.5 mL pen injector 1.5 mg subcut QWEEK Patient Comments: INJECT 1.5 MG SUBCUTANEOUSLY ONE TIME A WEEK. INJECT ONCE PER WEEK. DISCARD PEN AFTER Rx Instructions: takes on tuesdays metoprolol tartrate 50 MG tablet 50 mg PO BID metformin 500 mg Tablet 500 mg PO DINNER Hold Instructions: Hold for 7 days hydrocodone-acetaminophen 5-325 mg Tablet 1 tab PO Q6H PRN (Reason: Pain) diphenhydramine HCl 12.5 mg tablet,chewable 12.5 mg PO Q6H PRN (Reason: allergic rash) Qty: 30 0RF Rx Instructions: for allergic rash. methylprednisolone [Medrol (Jaron)] 4 mg tablets,dose pack 4 mg PO DAILY Qty: 21 0RF Rx Instructions: Take it as directed. Tresiba FlexTouch U-200 200 unit/mL (3 mL) Insulin Pen 100 unit SUBCUT DAILY Qty: 9 0RF Rx Instructions: Hold if glucose less than 130 mg/dl. Xarelto 20 mg tablet 20 mg PO DAILY Qty: 90 3RF Rx Instructions: must administer with evening meal Primary Care Provider: Ángel Miranda Referrals: Ricci Rick MD [Non-Staff] - Activity Restrictions/Additional Instructions: You may also want to try just regular saline nasal air spray, humidifier to keep your nasal passages and your throat more moist to decrease any concern for bleeding. Follow-up outpatient. Disposition Disposition: Home, Self Care Discharge Date/Time: 05/03/23 18:05
[2023-05-03 15:58] VITALS: BP 161/81; PULSE 73; RESP 16; O2SAT 96
--- NOTE | 2023-05-03 16:26 | CT_ITS ---
INDICATION: Hemoptysis EXAMINATION: CT CHEST WITHOUT CONTRAST - CT Chest W/O Contrast Injection TECHNIQUE: Helically acquired images were obtained of the chest. A radiation dose optimization technique was used for this scan. IV Contrast dosage and agent: None. COMPARISON: Chest x-ray earlier today FINDINGS: LUNGS, PLEURA AND LARGE AIRWAYS: No masses, consolidation, or edema. Small left pleural effusion. Tiny right pleural effusion. No pneumothorax. THYROID: No thyroid lesions. HEART AND PERICARDIUM: Heart size is normal. No pericardial effusion. Aortic valve prosthesis. CORONARY ARTERIES: Coronary artery calcification is seen. VESSELS: Thoracic aorta is not dilated. MEDIASTINUM AND TODD: No mediastinal or hilar adenopathy. Esophagus is unremarkable. No hiatal hernia. UPPER ABDOMEN: Tiny density calcified gallstones in the dependent portion the gallbladder consistent with cholelithiasis. BONES: Mild dextroscoliosis of the thoracic spine with degenerative disc disease. CT/Chest without Contrast IMPRESSION: Small left pleural effusion and tiny right pleural effusion. Electronically Signed: Wilber Bailon MD at 17:50 EST ,
[2023-05-03 17:43] VITALS: BP 167/81; PULSE 71; RESP 16; O2SAT 98
[2023-05-03 18:00] VITALS: BP 178/98; PULSE 68; RESP 16
== END 2023-05-03 18:05 | disposition home or self-care (01) ==
PROVIDERS: Emergency Provider Emergency Medicine; PCP Internal Medicine; Visit Provider Emergency Medicine
DX: R04.2 Hemoptysis (principal); I48.20 Chronic atrial fibrillation, unspecified; E11.9 Type 2 diabetes mellitus without complications; Z79.4 Long term (current) use of insulin; I25.10 Atherosclerotic heart disease of native coronary artery without angina pectoris; I10 Essential (primary) hypertension; Z87.891 Personal history of nicotine dependence; E78.2 Mixed hyperlipidemia; Z79.899 Other long term (current) drug therapy; Z79.84 Long term (current) use of oral hypoglycemic drugs; Z79.01 Long term (current) use of anticoagulants; Z79.85 Long-term (current) use of injectable non-insulin antidiabetic drugs; Z95.2 Presence of prosthetic heart valve
CPT/HCPCS: 71046; 71250; 99282

== ENCOUNTER 2024-02-25 09:00 | Emergency (ER) | payer MEDICARE, SELFPAY ==
[2024-02-25 09:00] VITALS: BP 151/98; PULSE 78; RESP 14; TEMP 36; O2SAT 98
--- NOTE | 2024-02-25 09:00 | ED.RN ---
PT SITTING AT TRIAGE DESK IN WHEELCHAIR. HUFFING AND PUFFING, KNOCKING ON DESK. COMPLAINING BECAUSE A PT WAS TRIAGE BEFORE HIM. PT'S TRIAGE PAPER STATED KIDNEYS WHILE PT TRIAGED BEFORE HIM , WE WERE AWARE THAT HE WAS COMING WITH WITH SYMPTMATIC AFIB, WITH STENTS PLACED IN NOV.
--- NOTE | 2024-02-25 10:24 | CT_ITS ---
STUDY: CT ABDOMEN AND PELVIS WITHOUT CONTRAST REASON FOR EXAM: Male, 73 years old. left flank pain RADIATION DOSAGE (If Supplied By Facility): CTDIvol = ( 14.64 ) mGy, DLP = ( 775.19 ) mGycm TECHNIQUE: Transaxial images were obtained from the dome of the diaphragm to the symphysis pubis without oral contrast, and without intravenous contrast. Sagittal and coronal images were reconstructed. Individualized dose optimization techniques were used for this CT. COMPARISON: Comparison is made with prior study March 07, 2022. FINDINGS: Small bilateral pleural effusions left greater than right with bibasilar dependent atelectasis. Coronary artery calcification. Prior CABG. Normal liver. Small gallstones are seen in the region of the neck of the gallbladder. Normal spleen. Normal pancreas. Normal bilateral adrenal glands. Normal right kidney. 2 mm nonobstructive calculus in the upper pole calyx of the left kidney. Mild degree of nonspecific bilateral perinephric stranding. Normal visualized stomach. Normal small intestine. There are scattered colonic diverticula consistent with diverticulosis. The appendix is visualized and appears normal. There is scattered atherosclerotic calcification of the abdominal aorta and its major visceral branches, without a demonstrated aneurysm. Normal inferior vena cava. There is a small retroperitoneal lymphadenopathy with enlarged nodes no greater than 10mm in the short axis diameter. Distended urinary bladder. Calcification of the vas deferens. The prostate measures 3.3 cm x 4.9 cm. Normal abdominal wall. There are mild degenerative changes of the visualized lumbar spine. Healed fracture of the left medial superior ramus. CT/Abdomen/Pelvis without Cont IMPRESSION: Small bilateral pleural effusions left greater than right with bibasilar dependent atelectasis. Small gallstones in the region of the neck of the gallbladder. Mild degree of nonspecific bilateral perinephric stranding. Nonobstructive, question the upper pole OF the left kidney. No obstructive uropathy is seen at this time. Distended urinary bladder. Calcification of the vas deferens. Electronically Signed: Sergio Ortez MD at 12:29 EDT ,
--- NOTE | 2024-02-25 10:25 | EX.ED.DYSGE1 ---
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 He was told that when he was at [facility] a month or so ago that he had problems with his kidneys. While he denies any fevers or chills, no nausea or vomiting, no dysuria or hematuria, he states that he was told by his primary care provider and a doctor there that his kidneys were bad. He states he has foamy urine. Whenever he moves he has pain in his left low back and flank. He denies any loss of bowel or bladder. He was post follow-up with a grape cutter but did not. He presents because of reported 3 days of left flank pain. [facility] Medical History Arthritis Leukocytosis Nonrheumatic aortic (valve) stenosis Chronic atrial fibrillation Type 2 diabetes mellitus DEMETRI on CPAP Mixed hyperlipidemia Essential hypertension Atherosclerotic heart disease of [place] coronary artery without angina pectoris Home Medications ?Medication ?Instructions ?Recorded ?Last Taken ?Type lisinopril 40 mg tablet 20 mg PO DAILY blood pressure 07/08/19 Unknown History metformin 500 mg tablet 1,000 mg PO BREAKFAST diabetes 07/14/19 Unknown History atorvastatin 40 mg tablet 40 mg PO DAILY #90 tabs 01/11/20 Unknown Rx metoprolol tartrate 50 mg tablet 50 mg PO BID blood pressure 10/20/20 Unknown History rivaroxaban 20 mg tablet (Xarelto) 20 mg PO DAILY #90 tabs 10/23/20 Unknown Rx dulaglutide 1.5 mg/0.5 mL 1.5 mg subcut QWEEK diabetes 02/07/22 Unknown History subcutaneous pen injector (Trulicity) gabapentin 300 mg capsule 300 mg PO BID nerve pain 02/07/22 Unknown History hydrocodone-acetaminophen 5-325mg 1 tab PO Q12H Pain 03/07/22 Unknown History 5mg-325mg metformin 500 mg tablet 500 mg PO DINNER diabetes 03/07/22 Unknown History diphenhydramine HCl 12.5 mg 12.5 mg PO Q6H PRN allergic rash 03/08/22 Unknown Rx chewable tablet #30 tabs insulin degludec 200 unit/mL (3 100 unit (0.5 mL) subcut DAILY #9 03/08/22 Unknown Rx mL) subcutaneous pen (Tresiba mL FlexTouch U-200 insulin) methylprednisolone 4 mg tablets in 4 mg PO DAILY #21 tabs 03/08/22 Unknown Rx a dose pack (Medrol (Jaron)) ferrous gluconate 324 mg (38 mg 324 mg PO QODAY 02/25/24 Unknown History iron) tablet folic acid 1 mg tablet 1 mg PO DAILY 02/25/24 Unknown History insulin lispro 100 unit/mL 6 unit subcut .with meals 02/25/24 Unknown History subcutaneous solution (Humalog U-100 Insulin) pantoprazole 40 mg tablet,delayed 40 mg PO 02/25/24 Unknown History release Allergy/AdvReac Type Severity Reaction Status Date / Time Iodinated Contrast Media Allergy Inflammation Verified 02/25/24 09:03 of vein Family History Father Sudden cardiac , Onset Age: 49 Mother Alzheimer disease Sister Diabetes Surgical History History of tonsillectomy History of coronary artery bypass surgery (~10/17/09) Social History Smoking Status: Former smoker how long ago did patient quit smokin years ago alcohol intake: never substance use type: does not use caffeine: No ROS ROS ED ROS Narrative Constitutional: No fever, no chills. HEENT: No sore throat. No neck pain. No loss of vision. No rhinorrhea. Cardiovascular: No chest pain. No palpitations. No pedal edema. Respiratory: No cough, no shortness of breath. Abdominal: No abdominal pain. No nausea. No vomiting. Genitourinary: No dysuria. No hematuria. Positive left flank pain, worse with movement. Foamy urine. Musculoskeletal: No myalgias. No arthralgias. Neurologic: No headaches. No dizziness. No lightheadedness. Skin: No rash. No change in color. Psychiatric: No depression. No anxiety. EXAM Physical Exam Narrative Exam Narrative: Afebrile. Vital signs noted. HEENT: Normocephalic. Atraumatic. PERRL, EOMI. Neck soft and supple. No point tenderness or step off. Cardiovascular: Regular rate and rhythm. No murmurs, rubs, or gallops appreciated. Respiratory: No tachypnea. Lungs clear to auscultation bilaterally. Gastrointestinal: Abdomen soft, nontender, with normoactive bowel sounds. No rebound or guarding. No CVA tenderness to percussion. Neurological: Awake. Alert. Nonfocal, nonlateralizing. Skin: No rash. Normal color. No pallor. Musculoskeletal: No pedal edema. Full range of motion extremities. No vertebral point tenderness or bony step-off of the back. Const Vital Signs: 02/25/24 09:00 02/25/24 11:00 02/25/24 11:55 Temperature 96.8 F L Temperature Source Temporal Pulse Rate 78 94 77 Respiratory Rate 14 18 18 Blood Pressure 151/98 H 146/99 H Blood Pressure Mean 115 114 Pulse Ox 98 99 99 Oxygen Delivery Method Room Air Room Air 02/25/24 12:27 02/25/24 20:00 Temperature Temperature Source Pulse Rate 81 81 Respiratory Rate 12 16 Blood Pressure 145/68 H 168/92 H Blood Pressure Mean 93 117 Pulse Ox 98 97 Oxygen Delivery Method Room Air Room Air MDM MDM MDM Narrative Medical decision making narrative: Differential diagnosis includes but not limited to ureterolithiasis versus pyelonephritis versus musculoskeletal back pain. I will check a CBC and a CMP to look at his kidney function to see if he has acute renal failure. CT imaging will be obtained to rule out retroperitoneal mass or any pathology on the left kidney. Of note, I was approached by the RN, who stated that the patient stated to her that he is suicidal. He states that he is in debt to the [facility] because of his medical problems, and stated to her that he was suicidal. I will obtain medical clearance labs and have him evaluated by the crisis counselor. EKG was obtained and interpreted by myself independently as atrial fibrillation at 87 bpm without ectopy or acute ST changes. No STEMI. I reviewed his laboratory work and he has normal white count of 6.2, hemoglobin stable at 8.3 I do not feel that he needs a blood transfusion. When compared to previous laboratories, it was higher but that was 2 years ago. Platelet count normal at 236. CMP shows glucose elevated to 68 with a normal anion gap of 6 so I doubt diabetic ketoacidosis. LFTs show an AST of 40 which it is nonspecific with an ALT of 30 and an alk phos of 6.5. Lipase normal at 30. Total bilirubin is elevated at 2.4 which I think is nonspecific as well. He does not have any right upper quadrant tenderness or pain, no nausea or vomiting. Urinalysis is negative for infection. He was concerned about his kidneys and kidney function but is normal at 1.23. CT of the abdomen and pelvis shows no acute process, there is bilateral perinephric stranding which I think is nonspecific. There are gallstones in the gallbladder near the neck of the gallbladder. He also has small bilateral pleural effusions but I think this is more incidental as his pulse ox is 98% on room air without evidence of hypoxia. I did discuss with the RN that she reports that the patient states he has such debt that he incurred and a $1600 bill that is making him depressed that he wanted to end his life. Additionally, the [facility] RN reportedly called in and the patient had told the staff that he was suicidal as well. When I asked the patient if he was suicidal, he does not quite remember saying that. I feel he is medically cleared for evaluation by crisis. On her evaluation, he states that whenever he may have said was misconstrued and more of a figure of speech. Given that he has told various people that he wanted to end his life, I do feel that he requires placement and should be placed on 72-hour hold. Patient is currently awaiting placement. He is in stable condition. Patient will be signed out to the overnight physician to continue observation as he is pending placement in a psychiatric facility. He is in stable condition. History & Record Review Discussion w/independent historian: Patient Lab Data Attestation: I reviewed the patient's lab results. Labs: Laboratory Results - last 24 hr 02/25/24 02/25/24 02/25/24 09:30 11:40 12:14 WBC 6.2 RBC 3.02 L Hgb 8.3 L Hct 27.8 L MCV 92.1 MCH 27.5 MCHC 29.9 L RDW Std Deviation 58.8 H RDW Coeff of Arya 17.5 H Plt Count 236 MPV 10.6 Immature Gran % (Auto) 0.200 Neut % (Auto) 68.9 Lymph % (Auto) 14.1 L Owen % (Auto) 8.6 Eos % (Auto) 7.2 H Baso % (Auto) 1.0 Absolute Neuts (auto) 4.2 Absolute Lymphs (auto) 0.87 Nucleated RBC % 0 Sodium 138 Potassium 3.9 Chloride 107 Carbon Dioxide 25.0 Anion Gap 6 BUN 16 Creatinine 1.23 Est GFR (MDRD) Af Amer 75 Est GFR (MDRD) Non-Af 62 BUN/Creatinine Ratio 13.0 Glucose 268 H Calcium 9.0 Total Bilirubin 2.40 H AST 40 H ALT 30 Alkaline Phosphatase 63 Total Protein 6.5 Albumin 3.3 Globulin 3.2 Albumin/Globulin Ratio 1.0 Lipase 30 Urine Color Yellow Urine Clarity Clear Urine pH 6.0 Ur Specific [place] 1.020 Urine Protein 100 H Urine Glucose (UA) 1000 H Urine Ketones Negative Urine Occult Blood 150 H Urine Nitrite Negative Urine Bilirubin Negative Urine Urobilinogen 1 H Ur Leukocyte Esterase Negative Urine RBC 0-5 SEEN Urine WBC 0 SEEN Ur Squamous Epith Cells 0 SEEN Urine Bacteria 0 SEEN Urine Mucus 0 SEEN Urine Opiates Screen NEGATIVE Urine Methadone Screen NEGATIVE Ur Barbiturates Screen NEGATIVE Ur Phencyclidine Scrn NEGATIVE Ur Amphetamines Screen NEGATIVE MDMA (Ecstasy) Screen NEGATIVE U Benzodiazepines Scrn NEGATIVE Urine Cocaine Screen NEGATIVE U Cannabinoids Screen NEGATIVE Ur Drug Screen Comment Ethyl Alcohol < 3.0 POC Glucose 02/25/24 14:02 WBC RBC Hgb Hct MCV MCH MCHC RDW Std Deviation RDW Coeff of Arya Plt Count MPV Immature Gran % (Auto) Neut % (Auto) Lymph % (Auto) Owen % (Auto) Eos % (Auto) Baso % (Auto) Absolute Neuts (auto) Absolute Lymphs (auto) Nucleated RBC % Sodium Potassium Chloride Carbon Dioxide Anion Gap BUN Creatinine Est GFR (MDRD) Af Amer Est GFR (MDRD) Non-Af BUN/Creatinine Ratio Glucose Calcium Total Bilirubin AST ALT Alkaline Phosphatase Total Protein Albumin Globulin Albumin/Globulin Ratio Lipase Urine Color Urine Clarity Urine pH Ur Specific [place] Urine Protein Urine Glucose (UA) Urine Ketones Urine Occult Blood Urine Nitrite Urine Bilirubin Urine Urobilinogen Ur Leukocyte Esterase Urine RBC Urine WBC Ur Squamous Epith Cells Urine Bacteria Urine Mucus Urine Opiates Screen Urine Methadone Screen Ur Barbiturates Screen Ur Phencyclidine Scrn Ur Amphetamines Screen MDMA (Ecstasy) Screen U Benzodiazepines Scrn Urine Cocaine Screen U Cannabinoids Screen Ur Drug Screen Comment Ethyl Alcohol POC Glucose 246 H Radiography Diagnostic Testing: Clinical Impression(s) from Imaging Studies Abdomen/Pelvis CT 02/25/24 10:24 IMPRESSION: Small bilateral pleural effusions left greater than right with bibasilar dependent atelectasis. Small gallstones in the region of the neck of the gallbladder. Mild degree of nonspecific bilateral perinephric stranding. Nonobstructive, question the upper pole OF the left kidney. No obstructive uropathy is seen at this time. Distended urinary bladder. Calcification of the vas deferens. Electronically Signed: Sergio Ortez MD at 12:29 EDT , Discharge Plan Triage Chief Complaint: Flank Pain ED Provider: Chandler Blanc Dx/Rx/DC Orders Prescriptions: No Action lisinopril 40 mg tablet 20 mg PO DAILY Patient Comments: pt's home med list states 20mg daily Rx Instructions: orally daily; metformin 500 mg tablet 1,000 mg PO BREAKFAST gabapentin 300 mg capsule 300 mg PO BID atorvastatin 40 mg tablet 40 mg PO DAILY Qty: 90 3RF Trulicity 1.5 mg/0.5 mL pen injector 1.5 mg subcut QWEEK Patient Comments: INJECT 1.5 MG SUBCUTANEOUSLY ONE TIME A WEEK. INJECT ONCE PER WEEK. DISCARD PEN AFTER Rx Instructions: takes on tuesdays metoprolol tartrate 50 MG tablet 50 mg PO BID metformin 500 mg Tablet 500 mg PO DINNER hydrocodone-acetaminophen 5-325 mg Tablet 1 tab PO Q12H diphenhydramine HCl 12.5 mg tablet,chewable 12.5 mg PO Q6H PRN (Reason: allergic rash) Qty: 30 0RF Rx Instructions: for allergic rash. methylprednisolone [Medrol (Jaron)] 4 mg tablets,dose pack 4 mg PO DAILY Qty: 21 0RF Rx Instructions: Take it as directed. insulin degludec [Tresiba FlexTouch U-200] 200 unit/mL (3 mL) Insulin Pen 100 unit SUBCUT DAILY Qty: 9 0RF Rx Instructions: Hold if glucose less than 130 mg/dl. insulin lispro [Humalog U-100 Insulin] 100 unit/mL solution 6 unit subcut .with meals Rx Instructions: 6 units with meals plus sliding scale 2units for every 50 over. this is per pt's home med list. pantoprazole 40 mg tablet,delayed release (DR/EC) 40 mg PO folic acid 1 mg tablet 1 mg PO DAILY ferrous gluconate 324 mg (38 mg iron) tablet 324 mg PO QODAY Xarelto 20 mg tablet 20 mg PO DAILY Qty: 90 3RF Rx Instructions: must administer with evening meal Primary Care Provider: Ricci Rick Referrals: Ángel Miranda MD [Med Staff - Ceramics Artist] - Print Language: Icelandic
[2024-02-25 10:40] LABS: Absolute Lymphocyte Count 0.87 X10^3/uL (0.83-4.51); Absolute Neutrophil Count 4.2 X10^3/uL (2.0-7.7); Basophil# 0.06 X10^3/uL; Eosinophil# 0.44 X10^3/uL; Eosinophils% 7.2 % (0-5); Hematocrit 27.8 % (40-54); Hemoglobin 8.3 g/dL (13.0-16.5); Lymphocyte # 0.87 X10^3/ul (0.83-4.51); Lymphocyte % 14.1 % (19-41); Mean Corp Hgb Conc 29.9 g/dL (32-36); Mean Corpuscular Hgb 27.5 pg (27.0-32.0); Mean Corpuscular Volume 92.1 fL (80-94); Mean Platelet Vol. 10.6 fl (6.2-12.0); Monocyte# 0.53 X10^3/uL; Monocyte% 8.6 % (0-10); NRBC Flagged by Analyzer 0 % (0-5); Neutrophil # 4.24 X10^3/uL (2.7-7.7); Neutrophil % 68.9 % (47-70); Platelet Count 236 K/mm3 (150-450); RBC Distribution Width CV 17.5 % (11.6-14.6); RBC Distribution Width SD 58.8 fl (35.1-43.9); Red Blood Count 3.02 M/mm3 (4.6-6.2); White Blood Count 6.2 K/mm3 (4.4-11.0)
[2024-02-25] MEDS: 0.9% Normal Saline (1000mL) 1,000 ML 1000 ML IV (10:47)
[2024-02-25 10:50] LABS: AST(SGOT) 40 U/L (15-37); Alanine Aminotransfer ALT/SGPT 30 U/L (16-61); Albumin, Serum 3.3 g/dL (3.2-5.0); Alkaline Phosphatase 63 U/L (45-117); Anion Gap 6 (5-15); BUN 16 mg/dL (7-18); Chloride 107 mmol/L (98-107); Creatinine, Serum 1.23 mg/dL (0.70-1.30); EST Glomerular Filtration Rate 62 mL/min (>60); Est Glom Filt Rate - Afr Amer 75 mL/min (>60); Globulin 3.2 g/dL (2.2-4.2); Glucose 268 mg/dL (74-106); Potassium 3.9 mmol/L (3.5-5.1); Protein, Total 6.5 g/dL (6.4-8.2); Sodium Level 138 mmol/L (136-145)
[2024-02-25 11:00] VITALS: BP 146/99; PULSE 94; RESP 18; O2SAT 99
--- NOTE | 2024-02-25 11:13 | EKG12_ITS ---
Test Reason : MEDICAL CLEARANCE Blood Pressure : / mmHG Vent. Rate : 087 BPM Atrial Rate : 000 BPM P-R Int : 000 ms QRS Dur : 098 ms QT Int : 394 ms P-R-T Axes : 000 054 059 degrees QTc Int : 474 ms Atrial fibrillation Nonspecific ST abnormality Abnormal ECG Confirmed by Darius Correia ([id number]), film editor JOSE JUAN AMBROSIO ([id number]) on 02/26/2024 8:19:28 AM Referred By: Confirmed By:Darius Correia
--- NOTE | 2024-02-25 11:15 | ED.RN ---
pt states to this RN that he is having issues with bills coming in at home. pt states he was unaware that his insurance would not cover all medical bills and now he is stuck with a $1600 bill. pt states i just don't want to live anymore. Meanwhile, charge nurse Nadege had a conversation with nurse from [facility]- the nurse stated that she had a 20 minute conversation and he also stated to the nurse that he wanted to . this rn finishes with the patient and dr. freire made aware of both conversations. [facility] made.
[2024-02-25 11:55] VITALS: PULSE 77; RESP 18; O2SAT 99
[2024-02-25 12:03] LABS: Alcohol, Blood (Medical)-Serum < 3.0 mg/dL
[2024-02-25 12:24] LABS: Bacteria 0 SEEN /hpf (None Seen); Mucous, Urine 0 SEEN /hpf (<or=2+); Squamous Epithelial Cells - UA 0 SEEN /hpf (0-5); White Blood Cells 0 SEEN /hpf (0-5)
[2024-02-25 12:27] VITALS: BP 145/68; PULSE 81; RESP 12; O2SAT 98
[2024-02-25 12:27] LABS: Color, Urine Yellow (Yellow); Glucose, Dipstick 1000 mg/dl (Normal); Ketone-Dipstick Negative (Negative); Leukocyte Esterase-Dipstick Negative /ul (Negative); Nitrite-Dipstick Negative (Negative); Occult Blood-Urine 150 /ul (Negative); Protein-Dipstick 100 mg/dl (Negative); Urine Bilirubin Dipstick Negative (Negative); Urine Clarity Clear (Clear); Urine Urobilinogen 1 mg/dl (Normal)
[2024-02-25 12:54] LABS: Red Blood Cells-Urine 0-5 SEEN /hpf (0-5)
[2024-02-25 13:27] LABS: Lipase 30 U/L (13-75)
[2024-02-25 13:29] LABS: Amphetamine Urine VISTA NEGATIVE (<1000 ng/mL); Barbiturate Urine VISTA NEGATIVE (< 200 ng/mL); Benzodiazepine Urine VISTA NEGATIVE (< 200 ng/mL); Cocaine Urine VISTA NEGATIVE (< 300 ng/mL); Ecstacy Urine VISTA NEGATIVE (< 500 ng/mL); Methadone Urine VISTA NEGATIVE (< 300 ng/mL); PCP Urine VISTA NEGATIVE (< 25 ng/mL); THC Urine VISTA NEGATIVE (< 50 ng/mL); Vista UDS pH Range 6
[2024-02-25 15:16] LABS: Bedside Glucose 246 mg/dL (74-106)
--- NOTE | 2024-02-25 17:41 | NURSING ---
FAXED PINK SLIP TO CRISIS
[2024-02-25 20:00] VITALS: BP 168/92; PULSE 81; RESP 16; O2SAT 97
[2024-02-25] MEDS: Gabapentin 300 MG Capsule PO (22:00)
[2024-02-25] MEDS: Metoprolol Tartrate 50 MG Tablet PO (22:00)
[2024-02-25] MEDS: Rivaroxaban 20 MG Tablet PO (22:00)
--- NOTE | 2024-02-25 23:56 | ED.RN ---
Patient is upset with staff stating that we are miss treating him. He feels like I'm a prisoner and I haven't done anything wrong. I said one thing and you people took it out of context. 1:1 for 30 minutes spent with patient. An extra blanket and sandwich was given. Patient's feet were elevated with extra blankets for comfort.
[2024-02-26] MEDS: DiphenhydrAMINE 50 MG/ML Syringe 25 MG IV (01:11)
[2024-02-26] MEDS: LORazepam 2 MG/ML Syringe 1 MG IV (01:11)
[2024-02-26 04:00] VITALS: BP 156/74; PULSE 77; RESP 18; O2SAT 94
[2024-02-26 04:33] VITALS: BP 156/74; PULSE 77; RESP 18; TEMP 36.8; O2SAT 94
[2024-02-26 05:00] LABS: Bedside Glucose 250 mg/dL (74-106)
== END 2024-02-26 07:13 ==
PROVIDERS: Emergency Provider Emergency Medicine; PCP Family Medicine; Visit Provider Emergency Medicine
DX: R10.9 Unspecified abdominal pain (principal); I48.20 Chronic atrial fibrillation, unspecified; E11.9 Type 2 diabetes mellitus without complications; Z79.4 Long term (current) use of insulin; I25.10 Atherosclerotic heart disease of native coronary artery without angina pectoris; E78.2 Mixed hyperlipidemia; I10 Essential (primary) hypertension; Z87.891 Personal history of nicotine dependence; G47.33 Obstructive sleep apnea (adult) (pediatric); Z99.89 Dependence on other enabling machines and devices; Z79.899 Other long term (current) drug therapy; Z79.84 Long term (current) use of oral hypoglycemic drugs; Z79.01 Long term (current) use of anticoagulants; Z79.85 Long-term (current) use of injectable non-insulin antidiabetic drugs; R45.851 Suicidal ideations
CPT/HCPCS: 74176; 80053; 80307; 81001; 82077; 82962; 83690; 85025; 87631; 93005; 96361; 96374; 96375; 99285; A4216

== ENCOUNTER 2024-03-08 23:33 | Emergency (ER) | payer MEDICARE, MEDICAID, SELFPAY ==
[2024-03-08 23:34] VITALS: BP 143/77; PULSE 68; RESP 19; TEMP 36.6; O2SAT 98; BMI 30.4
--- NOTE | 2024-03-09 00:10 | EKG12_ITS ---
Test Reason : Blood Pressure : / mmHG Vent. Rate : 074 BPM Atrial Rate : 000 BPM P-R Int : 000 ms QRS Dur : 092 ms QT Int : 416 ms P-R-T Axes : 000 022 052 degrees QTc Int : 461 ms Atrial fibrillation Abnormal ECG Confirmed by NEYMAR BRYANT, WILLIAM ([id number]), editor dictionary JOSE JUAN AMBROSIO ([id number]) on 03/09/2024 1:24:02 PM Referred By: Confirmed By:WILLIAM BLACKMON MD
[2024-03-09] MEDS: 0.9% Normal Saline (1000mL) 1,000 ML 1000 ML IV (00:22)
[2024-03-09 00:40] LABS: Absolute Lymphocyte Count 1.37 X10^3/uL (0.83-4.51); Absolute Neutrophil Count 3.6 X10^3/uL (2.0-7.7); Basophil# 0.07 X10^3/uL; Basophil% 1.1 % (0-1); Eosinophil# 0.47 X10^3/uL; Eosinophils% 7.7 % (0-5); Hematocrit 29.2 % (40-54); Hemoglobin 9.3 g/dL (13.0-16.5); Lymphocyte # 1.37 X10^3/ul (0.83-4.51); Lymphocyte % 22.3 % (19-41); Mean Corp Hgb Conc 31.8 g/dL (32-36); Mean Corpuscular Hgb 27.6 pg (27.0-32.0); Mean Corpuscular Volume 86.6 fL (80-94); Mean Platelet Vol. 11.9 fl (6.2-12.0); Monocyte# 0.57 X10^3/uL; Monocyte% 9.3 % (0-10); NRBC Flagged by Analyzer 0 % (0-5); Neutrophil # 3.63 X10^3/uL (2.7-7.7); Neutrophil % 59.3 % (47-70); Platelet Count 298 K/mm3 (150-450); RBC Distribution Width CV 15.4 % (11.6-14.6); RBC Distribution Width SD 47.5 fl (35.1-43.9); Red Blood Count 3.37 M/mm3 (4.6-6.2); White Blood Count 6.1 K/mm3 (4.4-11.0)
[2024-03-09 00:45] LABS: Anion Gap 7 (5-15); BUN 30 mg/dL (7-18); BUN/Creat Ratio 19.5 RATIO (10-20); Calcium,Total 9.1 mg/dL (8.5-10.1); Chloride 104 mmol/L (98-107); Creatinine, Serum 1.54 mg/dL (0.70-1.30); EST Glomerular Filtration Rate 48 mL/min (>60); Est Glom Filt Rate - Afr Amer 58 mL/min (>60); Estimated Creatinine Clearance 46.58 ml/min; Glucose 336 mg/dL (74-106); Potassium 3.6 mmol/L (3.5-5.1); Sodium Level 135 mmol/L (136-145); Troponin-I HS 12 pg/mL (3.0-78.0)
--- NOTE | 2024-03-09 00:54 | EDS_ITS ---
HPI History of Present Illness Chief Complaint: Dizziness Informant: patient Onset/Context/Timing Onset: Today Context: Sudden Onset Timing: Continuous Quality: Spinning Location: Head Worsened by: Head movements Relieved by: Nothing Narrative Narrative: Patient presents with dizziness that began today. Patient states it began rather suddenly. Patient describes it as a spinning sensation. Patient states it is worse whenever he moves his head. Patient states nothing makes it better. Patient states he had an episode of diarrhea prior to this. Patient states that he started feeling dizzy after he had his episode of diarrhea. Patient states that after he became dizzy he became nauseated. Patient states he feels kind of weak all over. Patient denies any headaches. Patient denies any fevers or chills. [facility] Medical History Arthritis Leukocytosis Nonrheumatic aortic (valve) stenosis Chronic atrial fibrillation Type 2 diabetes mellitus DEMETRI on CPAP Mixed hyperlipidemia Essential hypertension Atherosclerotic heart disease of [place] coronary artery without angina pectoris Home Medications ?Medication ?Instructions ?Recorded ?Last Taken ?Type lisinopril 40 mg tablet 20 mg PO DAILY blood pressure 07/08/19 Unknown History metformin 500 mg tablet 1,000 mg PO BREAKFAST diabetes 07/14/19 Unknown History atorvastatin 40 mg tablet 40 mg PO DAILY #90 tabs 01/11/20 Unknown Rx metoprolol tartrate 50 mg tablet 50 mg PO BID blood pressure 10/20/20 Unknown History rivaroxaban 20 mg tablet (Xarelto) 20 mg PO DAILY #90 tabs 10/23/20 Unknown Rx dulaglutide 1.5 mg/0.5 mL 1.5 mg subcut QWEEK diabetes 02/07/22 Unknown [facility] gabapentin 300 mg capsule 300 mg PO BID nerve pain 02/07/22 Unknown History hydrocodone-acetaminophen 5-325mg 1 tab PO Q12H Pain 03/07/22 Unknown History 5mg-325mg metformin 500 mg tablet 500 mg PO DINNER diabetes 03/07/22 Unknown History diphenhydramine HCl 12.5 mg 12.5 mg PO Q6H PRN allergic rash 03/08/22 Unknown Rx chewable tablet #30 tabs insulin degludec 200 unit/mL (3 100 unit (0.5 mL) subcut DAILY #9 03/08/22 Unknown Rx mL) subcutaneous pen (Tresiba mL FlexTouch U-200 insulin) methylprednisolone 4 mg tablets in 4 mg PO DAILY #21 tabs 03/08/22 Unknown Rx a dose pack (Medrol (Jaron)) ferrous gluconate 324 mg (38 mg 324 mg PO QODAY 02/25/24 Unknown History iron) tablet folic acid 1 mg tablet 1 mg PO DAILY 02/25/24 Unknown History insulin lispro 100 unit/mL 6 unit subcut .with meals 02/25/24 Unknown History subcutaneous solution (Humalog U-100 Insulin) pantoprazole 40 mg tablet,delayed 40 mg PO 02/25/24 Unknown History release Allergy/AdvReac Type Severity Reaction Status Date / Time Iodinated Contrast Media Allergy Inflammation Verified 03/08/24 23:34 of vein Family History Father Sudden cardiac , Onset Age: 49 Mother Alzheimer disease Sister Diabetes Surgical History History of tonsillectomy History of coronary artery bypass surgery (~10/17/09) Social History Smoking Status: Former smoker how long ago did patient quit smokin years ago alcohol intake: never substance use type: does not use caffeine: No ROS ROS ED Constitutional Constitutional ED: Denies chills or fever(s) Eyes Eyes: Reports change in vision; Denies blurry vision ENT ENT ED: Denies rhinorrhea or sore throat Cardiovascular Cardiovascular: Denies chest pain or palpitations Respiratory/Chest Respiratory/Chest: Denies cough or dyspnea Gastrointestinal Gastrointestinal: Reports diarrhea and nausea; Denies vomiting Genitourinary Genitourinary ED: Denies dysuria or hematuria Musculoskeletal Musculoskeletal: Denies back pain or neck pain Integumentary Denies abscess or rash Neurologic Neurologic: Reports weakness; Denies headache(s) Allergic/Immunologic Allergic/Immunologic ED: Denies mouth swelling or urticaria EXAM Physical Exam Const Vital Signs: 03/08/24 23:34 Temperature 97.9 F Temperature Source Oral Pulse Rate 68 Respiratory Rate 19 H Blood Pressure 143/77 H Blood Pressure Mean 99 Pulse Ox 98 Oxygen Delivery Method Room Air Positive well nourished and well developed General Appearance ED: well developed and NAD HEENT Reports moist mucous membranes Eyes PERRL and EOMs intact bilaterally Eyes Narrative: There is no nystagmus noted. Neck supple and no JVD Resp normal respiratory effort and clear to auscultation bilaterally Cardio regular rate Rhythm: abnormal rhythm irregularly irregular GI non-tender and non-distended Palpation: soft Extremity normal to inspection General Extremety ED: Negative for edema or tenderness General Extremity: Negative for edema Neuro oriented x3, CN's II-XII intact bilaterally and no sensory deficits noted Sensorium / Orientation: alert Motor Exam: strength 5/5 throughout Psych mental status grossly normal MDM MDM MDM Narrative Medical decision making narrative: Differential diagnosis includes vertigo, labyrinthitis, dehydration, electrolyte abnormality, anemia, cardiac dysrhythmia, cardiac ischemia, hypoglycemia, hyperglycemia, and urinary tract infection. EKG will be obtained to assess for cardiac dysrhythmia and cardiac ischemia. CBC will be obtained to assess for leukocytosis and anemia. Basic metabolic profile will be obtained to assess for electrolyte abnormality and renal function. High-sensitivity troponin will be obtained to assess for cardiac ischemia. Urinalysis will be obtained to assess for urinary tract infection and hematuria. COVID-19, influenza, and RSV PCR will be obtained to assess for viral illness. CT scan of the brain will be obtained to assess for intracranial bleeding and stroke. Chest x-ray will be obtained to assess for pneumonia and widened mediastinum. History & Record Review Additional record(s) reviewed:: Prior labs Lab Data Attestation: I reviewed the patient's lab results. Lab results narrative: CBC was reviewed. There is a mild anemia with a hemoglobin of 9.3 hematocrit 29.2. This was improved from previous results. Basic metabolic profile was reviewed. Glucose was elevated at 336. BUN was slightly elevated at 30 and creatinine was 1.54. These are consistent with previous results. High- sensitivity troponin was reviewed and was normal at 12. Labs: Laboratory Results - last 24 hr 03/08/24 23:30 WBC 6.1 RBC 3.37 L Hgb 9.3 L Hct 29.2 L MCV 86.6 MCH 27.6 MCHC 31.8 L RDW Std Deviation 47.5 H RDW Coeff of Arya 15.4 H Plt Count 298 MPV 11.9 Immature Gran % (Auto) 0.300 Neut % (Auto) 59.3 Lymph % (Auto) 22.3 [place] % (Auto) 9.3 Eos % (Auto) 7.7 H Baso % (Auto) 1.1 H Absolute Neuts (auto) 3.6 Absolute Lymphs (auto) 1.37 Nucleated RBC % 0 Sodium 135 L Potassium 3.6 Chloride 104 Carbon Dioxide 24.0 Anion Gap 7 BUN 30 H Creatinine 1.54 H Estim Creat Clear Calc 46.58 Est GFR (MDRD) Af Amer 58 L Est GFR (MDRD) Non-Af 48 L BUN/Creatinine Ratio 19.5 Glucose 336 H Calcium 9.1 Troponin I High Sens 12 EKG Initial EKG: Interpretation: No Acute Injury Pattern and Atrial Fibrillation (74) Comments: EKG was obtained. On my independent interpretation, shows atrial fibrillation with a rate of 74. QRS interval was normal at 92 ms. QTc interval was normal at 461 ms. [place] was normal at 22. There are no acute ST or T wave changes noted. This was unchanged compared to previous EKG dated 02/25/2024 Prior EKG tracings: available for review Prior: Unchanged (02/25/2024) Treatment and Re-Evaluation :: Patient refused CT scan and chest x-ray. Patient did not want to wait for his results. Patient left prior to receiving his results. Patient was able to ambulate without difficulty from the emergency department. Discharge Plan Triage Chief Complaint: Dizziness ED Provider: Fly Felipe Dx/Rx/DC Orders Clinical Impression: Dizziness, Essential hypertension, Type 2 diabetes mellitus Instructions: ED Dizziness, Uncertain Cause Prescriptions: No Action lisinopril 40 mg tablet 20 mg PO DAILY Patient Comments: pt's home med list states 20mg daily Rx Instructions: orally daily; metformin 500 mg tablet 1,000 mg PO BREAKFAST gabapentin 300 mg capsule 300 mg PO BID atorvastatin 40 mg tablet 40 mg PO DAILY Qty: 90 3RF Trulicity 1.5 mg/0.5 mL pen injector 1.5 mg subcut QWEEK Patient Comments: INJECT 1.5 MG SUBCUTANEOUSLY ONE TIME A WEEK. INJECT ONCE PER WEEK. DISCARD PEN AFTER Rx Instructions: takes on tuesdays metoprolol tartrate 50 MG tablet 50 mg PO BID metformin 500 mg Tablet 500 mg PO DINNER hydrocodone-acetaminophen 5-325 mg Tablet 1 tab PO Q12H diphenhydramine HCl 12.5 mg tablet,chewable 12.5 mg PO Q6H PRN (Reason: allergic rash) Qty: 30 0RF Rx Instructions: for allergic rash. methylprednisolone [Medrol (Jaron)] 4 mg tablets,dose pack 4 mg PO DAILY Qty: 21 0RF Rx Instructions: Take it as directed. insulin degludec [Tresiba FlexTouch U-200] 200 unit/mL (3 mL) Insulin Pen 100 unit SUBCUT DAILY Qty: 9 0RF Rx Instructions: Hold if glucose less than 130 mg/dl. insulin lispro [Humalog U-100 Insulin] 100 unit/mL solution 6 unit subcut .with meals Rx Instructions: 6 units with meals plus sliding scale 2units for every 50 over. this is per pt's home med list. pantoprazole 40 mg tablet,delayed release (DR/EC) 40 mg PO folic acid 1 mg tablet 1 mg PO DAILY ferrous gluconate 324 mg (38 mg iron) tablet 324 mg PO QODAY Xarelto 20 mg tablet 20 mg PO DAILY Qty: 90 3RF Rx Instructions: must administer with evening meal Primary Care Provider: Ricci Rick Referrals: Ricci Rick MD [Primary Care Provider] - 3-5 Days Print Language: Arabic Disposition Disposition: Home, Self Care Discharge Date/Time: 03/09/24 02:10
--- NOTE | 2024-03-09 02:06 | ED.RN ---
Pt yelling from room and heard from nurses station. Pt stating that he has been here too long and is back to normal and requesting to leave. Dr. Hussein made aware of complaints. This RN educated pt DR will be updating him on results soon or he can leave if he does not want to wait. Pt still requesting to leave and states he will walk himself home. IV removed and pt exited department
== END 2024-03-09 02:10 | disposition home or self-care (01) ==
PROVIDERS: Emergency Provider Emergency Medicine; PCP Family Medicine; Visit Provider Emergency Medicine
DX: R42 Dizziness and giddiness (principal); I48.20 Chronic atrial fibrillation, unspecified; E11.9 Type 2 diabetes mellitus without complications; Z79.4 Long term (current) use of insulin; I25.10 Atherosclerotic heart disease of native coronary artery without angina pectoris; E78.2 Mixed hyperlipidemia; I10 Essential (primary) hypertension; Z87.891 Personal history of nicotine dependence; G47.33 Obstructive sleep apnea (adult) (pediatric); Z99.89 Dependence on other enabling machines and devices; Z79.899 Other long term (current) drug therapy; Z79.84 Long term (current) use of oral hypoglycemic drugs; Z79.85 Long-term (current) use of injectable non-insulin antidiabetic drugs; Z79.01 Long term (current) use of anticoagulants
CPT/HCPCS: 80048; 84484; 85025; 87631; 93005; 96360; 96361; 99285; A4216

== ENCOUNTER 2024-07-12 14:12 | Emergency (ER) | payer MEDICARE, MEDICAID, SELFPAY ==
[2024-07-12 14:14] VITALS: BP 184/93; PULSE 86; RESP 15; TEMP 35.8; O2SAT 100; BMI 29.9
[2024-07-12] MEDS: 0.9% Normal Saline (1000mL) 1,000 ML 999 ML IV (15:12)
[2024-07-12 15:20] LABS: Absolute Neutrophil Count 4.7 X10^3/uL (2.0-7.7); Basophil# 0.04 X10^3/uL; Basophil% 0.6 % (0-1); Eosinophil# 0.19 X10^3/uL; Hematocrit 32.5 % (40-54); Lymphocyte % 12.8 % (19-41); Mean Corp Hgb Conc 30.8 g/dL (32-36); Mean Corpuscular Hgb 26.7 pg (27.0-32.0); Mean Corpuscular Volume 86.9 fL (80-94); Mean Platelet Vol. 10.1 fl (6.2-12.0); Monocyte# 0.47 X10^3/uL; Monocyte% 7.5 % (0-10); NRBC Flagged by Analyzer 0 % (0-5); Neutrophil # 4.73 X10^3/uL (2.7-7.7); Neutrophil % 75.5 % (47-70); Platelet Count 256 K/mm3 (150-450); RBC Distribution Width CV 15.6 % (11.6-14.6); RBC Distribution Width SD 49.1 fl (35.1-43.9); Red Blood Count 3.74 M/mm3 (4.6-6.2); White Blood Count 6.3 K/mm3 (4.4-11.0)
--- NOTE | 2024-07-12 15:22 | EX.ED.DYSGE1 ---
HPI History of Present Illness Chief Complaint: General Illness Narrative Narrative: Patient is a 73-year-old male with past medical history of hypertension, hyperlipidemia, DEMETRI, type 2 diabetes, atrial fibrillation on Xarelto, CVA who presented to the emergency department the chief complaint of generalized not feeling well. Patient states that since [place] he has not been feeling well overall. He states that he is here because he was talking with the nurse on the phone and states that when he got off the phone with them he was planning on taking his medications all 3 of his insulins as he not taking his medications today. He states that he has not eaten very much food therefore he did not want to because his blood sugars are low. Patient states that he was not trying to kill himself with that, and he states that he wants to be alive he has a daughter that loves and wants to live for her. Patient states that he has had a cough for a while off and on and states that he will sometimes cough something up but not all the time. [facility] Medical History Arthritis Leukocytosis Nonrheumatic aortic (valve) stenosis Chronic atrial fibrillation Type 2 diabetes mellitus DEMETRI on CPAP Mixed hyperlipidemia Essential hypertension Atherosclerotic heart disease of [place] coronary artery without angina pectoris Home Medications ?Medication ?Instructions ?Recorded ?Last Taken ?Type lisinopril 40 mg tablet 20 mg PO DAILY blood pressure 07/08/19 Unknown History metformin 500 mg tablet 1,000 mg PO BREAKFAST diabetes 07/14/19 Unknown History atorvastatin 40 mg tablet 40 mg PO DAILY #90 tabs 01/11/20 Unknown Rx metoprolol tartrate 50 mg tablet 50 mg PO BID blood pressure 10/20/20 Unknown History rivaroxaban 20 mg tablet (Xarelto) 20 mg PO DAILY #90 tabs 10/23/20 Unknown Rx dulaglutide 1.5 mg/0.5 mL 1.5 mg subcut QWEEK diabetes 02/07/22 Unknown [facility] gabapentin 300 mg capsule 300 mg PO BID nerve pain 02/07/22 Unknown History hydrocodone-acetaminophen 5-325mg 1 tab PO Q12H Pain 03/07/22 Unknown History 5mg-325mg metformin 500 mg tablet 500 mg PO DINNER diabetes 03/07/22 Unknown History diphenhydramine HCl 12.5 mg 12.5 mg PO Q6H PRN allergic rash 03/08/22 Unknown Rx chewable tablet #30 tabs insulin degludec 200 unit/mL (3 100 unit (0.5 mL) subcut DAILY #9 03/08/22 Unknown Rx mL) subcutaneous pen (Tresiba mL FlexTouch U-200 insulin) methylprednisolone 4 mg tablets in 4 mg PO DAILY #21 tabs 03/08/22 Unknown Rx a dose pack (Medrol (Jaron)) ferrous gluconate 324 mg (38 mg 324 mg PO QODAY 02/25/24 Unknown History iron) tablet folic acid 1 mg tablet 1 mg PO DAILY 02/25/24 Unknown History insulin lispro 100 unit/mL 6 unit subcut .with meals 02/25/24 Unknown History subcutaneous solution (Humalog U-100 Insulin) pantoprazole 40 mg tablet,delayed 40 mg PO 02/25/24 Unknown History release Allergy/AdvReac Type Severity Reaction Status Date / Time Iodinated Contrast Media Allergy Inflammation Verified 07/12/24 14:14 of vein Family History Father Sudden cardiac , Onset Age: 49 Mother Alzheimer disease Sister Diabetes Surgical History History of tonsillectomy History of coronary artery bypass surgery (~10/17/09) Social History Smoking Status: Former smoker how long ago did patient quit smokin years ago alcohol intake: never substance use type: does not use caffeine: No ROS ROS ED ROS Narrative Constitutional: Denies any fevers, chills, headaches, lightness, dizziness Eyes: Denies change in vision double vision blurry vision Cardiovascular: Denies chest pain palpitations Respiratory: Complains of cough denies sputum production as noted above denies wheezing Abdomen: Denies abdominal pain nausea vomiting diarrhea : Denies any urinary symptoms Neurological: Denies numbness, weakness, tingling Skin: Denies any rashes or lesions Psychiatric: Denies any suicidal homicidal ideations once again he states that he wants to be alive he does not want to he has a daughter that he wants to be around 4. EXAM Physical Exam Narrative Exam Narrative: General: Patient was lying in bed rest comfortably did not appear to be acute distress Head: Atraumatic, normocephalic Eyes: PERRL bilateral, EOMI bilateral, no conjunctival injection noted Neck: Soft, supple, trachea midline Cardiovascular: Regular in rhythm no murmurs gallops rubs noted Respiratory: Clear to auscultation bilaterally Abdomen: Soft, nondistended, nontender to palpation, bowel sounds present x 4 Extremities: +4/5 strength noted in the bilateral upper and lower extremities, radial pulses +2/4 in the bilateral per extremities Neurological: Patient following commands knew that he was at [facility] year is 2024. NIH of 0 GCS 15 Skin: Warm, dry, intact Const Vital Signs: 07/12/24 14:14 07/12/24 14:33 07/12/24 15:14 Temperature 96.4 F L Temperature Source Temporal Pulse Rate 86 Respiratory Rate 15 Respiratory Effort Normal Non-Labored Respiratory Pattern Normal Blood Pressure 184/93 H Blood Pressure Mean 123 Pulse Ox 100 Oxygen Delivery Method Room Air Room Air 07/12/24 16:19 07/12/24 18:00 07/12/24 20:03 Temperature Temperature Source Pulse Rate 84 82 79 Respiratory Rate 16 25 H Respiratory Effort Respiratory Pattern Blood Pressure 173/91 H 176/92 H Blood Pressure Mean 118 120 Pulse Ox 94 94 Oxygen Delivery Method Room Air Room Air MDM MDM MDM Narrative Medical decision making narrative: Patient is a 73-year-old male who presents to the emergency department via PD secondary to a comedy made on the phone with a nurse and they are concerned that he was going to try to kill himself by taking his insulin. Once again after discussing with him he did not want to he would not take his medications that he is prescribed daily as he had not taken them yet. He states that they misunderstood him. On the differential diagnose includes but not limited to DKA, pneumonia, upper respiratory infection second viral etiology. Once workup is obtained reviewed he will be reevaluated. Patient's EKG reviewed and independently interpreted by myself showed atrial fibrillation with a controlled rate of 75 bpm. Patient has a history of atrial fibrillation on Xarelto as noted above. Patient CBC reviewed and showed no evidence leukocytosis white blood count normal at 6.3, hemoglobin stable at 10, plate count was normal at 256. Patient sodium normal at 138, potassium was 4.2, creatinine was noted to be normal at 1.27.Patient chest x-ray reviewed by myself and by radiology showed no acute cardiopulmonary processes. Did have social work evaluate the patient as well and they noted that they gave him resources but he is futuristic no concern for suicidal or homicidal ideation. They noted that they will have Adult Protective Services check on him tomorrow. Patient would like to go home at this point time he is agreeable this plan all question concerns answered is discharged home in stable condition. Lab Data Labs: Laboratory Results - last 24 hr 07/12/24 15:10 WBC 6.3 RBC 3.74 L Hgb 10.0 L Hct 32.5 L MCV 86.9 MCH 26.7 L MCHC 30.8 L RDW Std Deviation 49.1 H RDW Coeff of Arya 15.6 H Plt Count 256 MPV 10.1 Immature Gran % (Auto) 0.600 Neut % (Auto) 75.5 H Lymph % (Auto) 12.8 L [place] % (Auto) 7.5 Eos % (Auto) 3.0 Baso % (Auto) 0.6 Absolute Neuts (auto) 4.7 Absolute Lymphs (auto) 0.80 L Nucleated RBC % 0 Sodium 138 Potassium 4.2 Chloride 105 Carbon Dioxide 26.0 Anion Gap 7 BUN 13 Creatinine 1.27 Estim Creat Clear Calc 56.08 Est GFR (MDRD) Af Amer 72 Est GFR (MDRD) Non-Af 59 L BUN/Creatinine Ratio 10.2 Glucose 227 H Calcium 9.0 Radiography Diagnostic Testing: Clinical Impression(s) from Imaging Studies Chest X-Ray 07/12/24 15:30 IMPRESSION: No radiographic evidence of acute cardiopulmonary disease. Electronically Signed: Laz Gupta MD at 15:49 EST , Discharge Plan Triage Chief Complaint: General Illness ED Provider: Aiden Saldivar Dx/Rx/DC Orders Clinical Impression: Encounter for medical screening examination Prescriptions: No Action lisinopril 40 mg tablet 20 mg PO DAILY Patient Comments: pt's home med list states 20mg daily Rx Instructions: orally daily; metformin 500 mg tablet 1,000 mg PO BREAKFAST gabapentin 300 mg capsule 300 mg PO BID atorvastatin 40 mg tablet 40 mg PO DAILY Qty: 90 3RF Trulicity 1.5 mg/0.5 mL pen injector 1.5 mg subcut QWEEK Patient Comments: INJECT 1.5 MG SUBCUTANEOUSLY ONE TIME A WEEK. INJECT ONCE PER WEEK. DISCARD PEN AFTER Rx Instructions: takes on tuesdays metoprolol tartrate 50 MG tablet 50 mg PO BID metformin 500 mg Tablet 500 mg PO DINNER hydrocodone-acetaminophen 5-325 mg Tablet 1 tab PO Q12H diphenhydramine HCl 12.5 mg tablet,chewable 12.5 mg PO Q6H PRN (Reason: allergic rash) Qty: 30 0RF Rx Instructions: for allergic rash. methylprednisolone [Medrol (Jaron)] 4 mg tablets,dose pack 4 mg PO DAILY Qty: 21 0RF Rx Instructions: Take it as directed. insulin degludec [Tresiba FlexTouch U-200] 200 unit/mL (3 mL) Insulin Pen 100 unit SUBCUT DAILY Qty: 9 0RF Rx Instructions: Hold if glucose less than 130 mg/dl. insulin lispro [Humalog U-100 Insulin] 100 unit/mL solution 6 unit subcut .with meals Rx Instructions: 6 units with meals plus sliding scale 2units for every 50 over. this is per pt's home med list. pantoprazole 40 mg tablet,delayed release (DR/EC) 40 mg PO folic acid 1 mg tablet 1 mg PO DAILY ferrous gluconate 324 mg (38 mg iron) tablet 324 mg PO QODAY Xarelto 20 mg tablet 20 mg PO DAILY Qty: 90 3RF Rx Instructions: must administer with evening meal Primary Care Provider: Ricci Rick Referrals: Ricci Rick MD [Primary Care Provider] - Activity Restrictions/Additional Instructions: Follow-up with your primary care physician outpatient setting. Return with worsening symptoms or any concerns. Social work team provided you with resources to use these. Print Language: Argentine Disposition Disposition: Home, Self Care
--- NOTE | 2024-07-12 15:30 | RAD_ITS ---
INDICATION: cough EXAMINATION/TECHNIQUE: X-RAY - XR Chest 2 Views COMPARISON: Prior study dated: 05/03/2023 FINDINGS: LINES/DEVICES: None. LUNGS: No consolidation, edema or effusion. No pneumothorax. MEDIASTINUM AND CARDIOVASCULAR STRUCTURES: Previous median sternotomy. Aortic stent is again seen. BONES AND SOFT TISSUES: Unremarkable. RAD/Chest PA and Lateral IMPRESSION: No radiographic evidence of acute cardiopulmonary disease. Electronically Signed: Laz Gupta MD at 15:49 EST ,
[2024-07-12 15:42] LABS: Anion Gap 7 (5-15); BUN 13 mg/dL (7-18); BUN/Creat Ratio 10.2 RATIO (10-20); Chloride 105 mmol/L (98-107); Creatinine, Serum 1.27 mg/dL (0.70-1.30); EST Glomerular Filtration Rate 59 mL/min (>60); Est Glom Filt Rate - Afr Amer 72 mL/min (>60); Estimated Creatinine Clearance 56.08 ml/min; Glucose 227 mg/dL (74-106); Potassium 4.2 mmol/L (3.5-5.1); Sodium Level 138 mmol/L (136-145)
[2024-07-12 16:19] VITALS: BP 173/91; PULSE 84; RESP 16; O2SAT 94
--- NOTE | 2024-07-12 16:52 | ED.RN ---
Pt asked registration for a urinal, registration came and got me. This RN walked in to the patient room and he stated I Havent eaten all day and I am about ready to walk out. This RN stated Let me check on some things for you, I am not sure what we are waiting on. I am not your nurse so give me one second to look into this. Patient stated You people take forever, I havent taken my meds and I am a diabetic. I havent eaten and I have been up since 6. THis RN stated we are waiting on social work to see you, let me ask if you can have a snack.
[2024-07-12 18:00] VITALS: BP 176/92; PULSE 82; RESP 25; O2SAT 94
[2024-07-12 20:03] VITALS: PULSE 79
--- NOTE | 2024-07-12 20:07 | CM.ED ---
Social work Reason for referral: discharge planning Referral source: lead java j2ee developer Alyssa and Dr. Saldivar This SW received knowledge of patient's presentation to [facility] ED at 1415 via lead java j2ee developer Alyssa. Nadege reported [facility] had transported patient to [facility] ED with concerns of SI and patient being unable to care for self in the home. Nadege stated [facility] also called in to report concerns due to patient stating on the phone that patient was going to take all my insulin. Patient reported in triage that the nurse misinterpreted patient's statement as patient wants to live as long as I can. Patient also stated in triage that patient has struggled to take care of self since patient's stroke a year ago. Dr. Saldivar put in a SW consult for discharge planning in order to have SW assess patient's suicidal statements and supports in place. This SW and ORACIO Samuels entered patient's room, identifying selves and roles at [facility]. Patient accepted SW visit, stating concern that patient had been in the ED for so long without medication. Patient was assured by both SWs and Nurse Mar that patient had only been present in the ED for a few hours. Patient stated being frustrated and wanting to leave, but patient was willing to speak with this SW and ORACIO Samuels. Patient stated having a stroke one year ago that has left patient's memory being inconsistent at times. Patient stated living alone in a studio apartment and reported having no supports. Patient reported having Concepcion Snyder as patient's social worker palliative care through the [facility]. Patient also reported having a nurse come to patient's home, though patient could not recall the name of the agency who provides this service. Patient reported having transportation via a sports car and patient stated having enough food in the home via a SNAP card and a [employer]UC[employer] card. Patient reported sleeping for about 9 hours each night though not believing it is enough. Patient discussed many details surrounding patient's daughter, Ary, and Ary's significant others who by suicide. Patient discussed frustrations with patient's daughter and patient became tearful when discussing details surrounding past memories of patient's daughter. Patient was open to Ary going back on patient's chart as an emergency contact despite the discord in the relationship currently. Much active listening and empathic support provided. When ORACIO Samuels broached the idea of counseling, patient stated never doing counseling before and not knowing if patient would be open to it or not. Patient had the same response when ORACIO Samuels asked about a support group for people impacted by suicide. Patient stated being unsure if patient could handle this or not due to feelings being brought up that patient feared being able to manage. Patient was agreeable to resources provided for the support group and local counseling agencies, stating patient would at least read and consider the resources. When this SW took resources back in to patient, patient stated still being willing to consider the counseling, but fearing patient's daughter's reaction to patient attending counseling. This SW asked about [facility] services and patient could not recall if patient was linked with [facility] or not yet; patient stated feeling overwhelmed by all of the support, but patient expressed being willing for this SW to submit a referral. Due to patient being placed at an inpatient psychiatric placement on 02/25/24 for SI, ORACIO Samuels completed the since last visit C-SSRS. Patient denied all suicidal ideations and suicidal behaviors. Patient stated during this conversation that patient once pulled patient's out of quicksand. During conversation, patient had flights of ideas and communicated in a tangential way. Patient did display some memory gaps, but patient was also detail oriented and redirected memory easily. Patient was labile and tearful. Patient was future focused, referenced patient's eli in God and nightly prayers. Patient discussed at length the way that patient's son-in-laws both dying by suicide impacted patient in a negative way and patient stated multiple times having zero intention of dying by suicide. This SW spoke with Dr. Saldivar who agreed with sending patient home. ORACIO Samuels to call APS in the morning to check in on patient. Plan: discharge home; handoff to Jo NIKO and ORACIO Samuels to call [facility] to check in; [facility] referral submitted. Abby Llamas, KRAFT DIGESTER OPERATOR, FORK LIFT MECHANIC
--- NOTE | 2024-07-13 17:53 | CM.ED ---
Social Work ORACIO received call from Zaira at [facility] stating she had received a referral on patient, however the phone number listed for patient has been disconnected or is no longer in service. Zaira asking for any additional contacts. ORACIO gave Zaira phone number for patients daughterAry [phone]. Jo Shen, PILE DRIVER OPERATOR HELPER, MIXED SIGNAL DESIGN ENGINEER
--- NOTE | 2024-07-21 08:20 | CM.ED ---
Social work This SW received return email on 07/19/24 from Zaira Walker with [facility] stating patient and patient's daughter were unable to be reached, resulting in this referral being closed. Zaira stated Zaira was able to leave a VM with patient's daughter with instructions on how to reach out for another referral if needed. Abby Llamas, DRIVER TRAINER, SHUTTLE BUGGY OPERATOR
== END 2024-07-12 20:28 | disposition home or self-care (01) ==
PROVIDERS: Emergency Provider Emergency Medicine; PCP Family Medicine; Visit Provider Emergency Medicine
DX: Z04.89 Encounter for examination and observation for other specified reasons (principal); I48.20 Chronic atrial fibrillation, unspecified; E11.9 Type 2 diabetes mellitus without complications; Z79.4 Long term (current) use of insulin; I10 Essential (primary) hypertension; Z87.891 Personal history of nicotine dependence; I25.10 Atherosclerotic heart disease of native coronary artery without angina pectoris; E78.2 Mixed hyperlipidemia; Z86.73 Personal history of transient ischemic attack (TIA), and cerebral infarction without residual deficits; G47.33 Obstructive sleep apnea (adult) (pediatric); Z99.89 Dependence on other enabling machines and devices; Z79.899 Other long term (current) drug therapy; Z79.84 Long term (current) use of oral hypoglycemic drugs; Z79.01 Long term (current) use of anticoagulants; Z79.85 Long-term (current) use of injectable non-insulin antidiabetic drugs
CPT/HCPCS: 71046; 80048; 85025; 90471; 93005; 96360; 99285; A4216

== ENCOUNTER 2024-07-26 14:07 | Emergency (ER) | payer MEDICARE, MEDICAID, SELFPAY ==
[2024-07-26 14:09] VITALS: BP 137/58; PULSE 85; RESP 11; TEMP 37.1; O2SAT 99; BMI 29.9
--- NOTE | 2024-07-26 14:22 | ED.RN ---
Patient states he does not want to be here at this Hospital and that the squad lied to him stating he could go to [facility] stating that they only deliver to [facility]. Patient states he does not like this hospital because no one ever calls his daughter telling her he is here. When asked if he has a phone, patient states he left it on the squad. Phone was noted to be beside the patient and handed to patient. Patient encouraged to call daughter to notify her of his arrival to [facility]. Patient states he is not going to call her because she is working and should not be interrupted. Patient became upset again when asked and assisted in the removal of his sweatshirt to place cardiac cath lab manager. Patient educated on the importance of placing monitor due to hx of afib and current symptoms patient is experiencing. Patient states I hope I here in this bed today. Patient complaining about temperature of room stating it is too cold. Patient reassured he has a very warm room but can be given more blankets if desired, patient provided with blankets. When asked about thoughts of suicide, patient states of course I don't want to !. Patient reminded that he had just said he hopes he dies in this bed today and implications of such statement. Patient denies SI and HI at this time.
--- NOTE | 2024-07-26 15:34 | ED.RN ---
THIS PT CALL LIGHT WENT OFF AND THIS NURSE RESPONDED TO IT. PT THREATENING TO LEAVE AND ASKING FOR FOOD ANDDRINK. HEVER HERNDON EDUCATED PT THAT HE IS ALLOWED TO LEAVE AMA. PT STATES HE WOULD LIKE TO GET TO THE BOTTOM OF THIS. THIS NURSE LEFT D/T DR. TALBOT WALKING IN ROOM.
--- NOTE | 2024-07-26 15:47 | EKG12_ITS ---
Test Reason : Blood Pressure : */* mmHG Vent. Rate : 76 BPM Atrial Rate : * BPM P-R Int : * ms QRS Dur : 90 ms QT Int : 390 ms P-R-T Axes : * 26 47 degrees QTcB Int : 438 ms Atrial fibrillation Abnormal ECG Confirmed by MASTER BRYANT, MIROSLAVA ([id number]), editor in chief newspaper MINO SCANLON ([id number]) on 07/28/2024 6:38:21 AM Referred By: Confirmed By: MIROSLAVA THAO MD
--- NOTE | 2024-07-26 15:49 | EX.ED.DYSGE1 ---
HPI History of Present Illness Chief Complaint: Weakness Informant: patient Narrative Narrative: Presents by EMS from home. Upon my arrival, he also told nursing he requested go to [facility] ED. He is currently here discussed with him medical screening exam discussion and can discuss disposition plans. Primary complaint 3-day cough initially productive no fevers. States abdominal discomfort with nausea. No vomiting or diarrhea. Denies any abdominal surgeries. States symptoms of losing balance twice over there is no falls. He states he had a stroke a year ago therefore memory is off. Lives alone. Home nurse comes twice a month. Today home nurse came to his house he states there is discussion EMS was contacted for him to be evaluated. He has no urinary symptoms. He states yesterday when he got the COVID booster. Denies vomiting diarrhea does not have bowel movements every day denies bloody stools. Denies urinary symptoms. Past medical history reports four-vessel bypass 14 years ago. 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 He is on Xarelto for history of A-fib. He is a diabetic he states due to the nurse coming out all morning he has not eaten all day. He can ambulate without assistance he states sometimes uses a cane if needed. He has had no falls. Of note nursing triage noted patient, avoiding for diet here. He states he just frustrated with the transport here initially, he has no current suicidal or homicidal thoughts. [facility] Medical History Arthritis Leukocytosis Nonrheumatic aortic (valve) stenosis Chronic atrial fibrillation Type 2 diabetes mellitus DEMETRI on CPAP Mixed hyperlipidemia Essential hypertension Atherosclerotic heart disease of [place] coronary artery without angina pectoris Home Medications ?Medication ?Instructions ?Recorded ?Last Taken ?Type lisinopril 40 mg tablet 20 mg PO DAILY blood pressure 07/08/19 Unknown History metformin 500 mg tablet 1,000 mg PO BREAKFAST diabetes 07/14/19 Unknown History atorvastatin 40 mg tablet 40 mg PO DAILY #90 tabs 01/11/20 Unknown Rx metoprolol tartrate 50 mg tablet 50 mg PO BID blood pressure 10/20/20 Unknown History rivaroxaban 20 mg tablet (Xarelto) 20 mg PO DAILY #90 tabs 10/23/20 Unknown Rx dulaglutide 1.5 mg/0.5 mL 1.5 mg subcut QWEEK diabetes 02/07/22 Unknown History subcutaneous pen injector (Trulicity) gabapentin 300 mg capsule 300 mg PO BID nerve pain 02/07/22 Unknown History hydrocodone-acetaminophen 5-325mg 1 tab PO Q12H Pain 03/07/22 Unknown History 5mg-325mg metformin 500 mg tablet 500 mg PO DINNER diabetes 03/07/22 Unknown History diphenhydramine HCl 12.5 mg 12.5 mg PO Q6H PRN allergic rash 03/08/22 Unknown Rx chewable tablet #30 tabs insulin degludec 200 unit/mL (3 100 unit (0.5 mL) subcut DAILY #9 03/08/22 Unknown Rx mL) subcutaneous pen (Tresiba mL FlexTouch U-200 insulin) methylprednisolone 4 mg tablets in 4 mg PO DAILY #21 tabs 03/08/22 Unknown Rx a dose pack (Medrol (Jaron)) ferrous gluconate 324 mg (38 mg 324 mg PO QODAY 02/25/24 Unknown History iron) tablet folic acid 1 mg tablet 1 mg PO DAILY 02/25/24 Unknown History insulin lispro 100 unit/mL 6 unit subcut .with meals 02/25/24 Unknown History subcutaneous solution (Humalog U-100 Insulin) pantoprazole 40 mg tablet,delayed 40 mg PO 02/25/24 Unknown History release oseltamivir 75 mg capsule (Tamiflu) 75 mg PO BID 5 days #10 caps 07/26/24 Unknown Rx Allergy/AdvReac Type Severity Reaction Status Date / Time Iodinated Contrast Media Allergy Inflammation Verified 07/26/24 14:17 of vein Family History Father Sudden cardiac , Onset Age: 49 Mother Alzheimer disease Sister Diabetes Surgical History History of tonsillectomy History of coronary artery bypass surgery (~10/17/09) Social History Smoking Status: Former smoker how long ago did patient quit smokin years ago alcohol intake: never substance use type: does not use caffeine: No ROS ROS ED Constitutional Constitutional ED: Denies chills, fever(s) or sweats ENT ENT ED: Denies sore throat Cardiovascular Cardiovascular: Denies chest pain, leg edema, palpitations or racing heartbeat Respiratory/Chest Respiratory/Chest: Reports cough; Denies dyspnea or dyspnea on exertion Gastrointestinal Gastrointestinal: Reports abdominal pain and nausea; Denies diarrhea or vomiting Genitourinary Genitourinary ED: Denies dysuria, hematuria or urinary frequency Musculoskeletal Musculoskeletal: Denies back pain, extremity pain or neck pain Integumentary Denies rash or wounds Neurologic Neurologic: Reports weakness; Denies headache(s) or paresthesias EXAM Physical Exam Const Vital Signs: 07/26/24 14:09 07/26/24 14:21 07/26/24 16:08 Temperature 98.8 F Temperature Source Oral Pulse Rate 85 78 Respiratory Rate 11 L 18 Respiratory Effort Normal Respiratory Pattern Normal Blood Pressure 137/58 H Blood Pressure Mean 84 Pulse Ox 99 95 Oxygen Delivery Method Room Air Room Air 07/26/24 18:00 07/26/24 19:50 Temperature 98.8 F Temperature Source Pulse Rate 78 Respiratory Rate 18 Respiratory Effort Respiratory Pattern Blood Pressure 137/58 H Blood Pressure Mean 84 Pulse Ox 96 96 Oxygen Delivery Method Room Air Positive well nourished and well developed General Appearance ED: well developed and NAD HEENT Reports moist mucous membranes normocephalic and atraumatic Eyes General Eye ED: Yes normal appearance of both eyes Neck full ROM Chest Wall Chest: Negative for tenderness Resp normal respiratory effort and normal air movement Effort and Inspection: symmetric chest movement; Negative for respiratory distress Cardio regular rate and no murmurs Rhythm: abnormal rhythm Peripheral Pulses: pulses 2+ throughout GI normal to inspection, nondistended, normoactive bowel sounds GI Narrative: Negative Jama's or McBurney's tenderness. Mild tenderness mid abdomen. No guarding or rebound. Palpation: Negative for guarding or rebound tenderness present Extremity normal to inspection General Extremety ED: Negative for edema or tenderness General Extremity: Negative for edema Neuro oriented x3, CN's II-XII intact bilaterally and no sensory deficits noted Sensorium / Orientation: awake and alert Skin no rashes or lesions noted and no wounds MDM MDM MDM Narrative Medical decision making narrative: Patient interventions / MDM: Differential diagnosis: Viral syndrome, cough Diagnosis considered but do not suspect: Pneumonia however x-ray negative. My EKG interpretation: N/A Imaging independently reviewed and interpreted by myself: 2 view abdomen: Nonspecific bowel gas no obstruction. Two-view chest x-ray: No acute process. External documents reviewed: N/A Test considered but not ordered:N/A ED course: Vital signs stable is alert and orient x 3. Primary complaint 3 days of cough there is abdominal pain with nausea. Nonsurgical abdomen. Initial discussed with him if he is concerned did not want treatment here and he happy to transfer him to another ER if he declines treatment however discussed workup and possibility of feeding him as results come back. He is now in agreement for treatment here. EKG ordered abdominal series x-ray abdominal labs, COVID and flu swab sent. IV established for antiemetics. 192: Chest x-ray negative abdominal x-ray negative. Labs stable hemoglobin 9.7 stable from previous. Creatinine 1.23 with GFR 62. Urine negative. Viral swabs positive for COVID and influenza. Patient ambulated maintain at 96%. I discussed results with the patient. He is on day 2 of symptoms. With his cardiac history discussed antivirals. He is on Xarelto therefore contraindication with the Paxlovid. Prescription sent in for Tamiflu. This will be sent to his pharmacy. He is able to ambulate. He is not suicidal or homicidal. No indication requiring hospitalization at this time. Re-evaluation: stable Disposition discussed with patient/family/significant other: Patient Case discussed with consulting clinician: N/A This note was generated with Telepath dictation software. It may contain incorrect words, spelling, and punctuation that were not noted in checking the note before signing. Lab Data Attestation: I reviewed the patient's lab results. Labs: Laboratory Results - last 24 hr 07/26/24 07/26/24 14:16 17:35 WBC 3.7 L RBC 3.55 L Hgb 9.7 L Hct 30.3 L MCV 85.4 MCH 27.3 MCHC 32.0 RDW Std Deviation 50.1 H RDW Coeff of Arya 16.2 H Plt Count 135 L MPV TNP Immature Gran % (Auto) 0.500 Neut % (Auto) 78.4 H Lymph % (Auto) 8.9 L Bledsoe % (Auto) 10.6 H Eos % (Auto) 0.5 Baso % (Auto) 1.1 H Absolute Neuts (auto) 2.9 Absolute Lymphs (auto) 0.33 L Nucleated RBC % 0 Sodium 136 Potassium 3.9 Chloride 106 Carbon Dioxide 25.0 Anion Gap 6 BUN 13 Creatinine 1.23 Estim Creat Clear Calc 57.95 Est GFR (MDRD) Af Amer 74 Est GFR (MDRD) Non-Af 62 BUN/Creatinine Ratio 10.6 Glucose 78 Calcium 9.1 Total Bilirubin 3.30 H AST 45 H ALT 21 Alkaline Phosphatase 62 Total Protein 6.7 Albumin 3.4 Globulin 3.3 Albumin/Globulin Ratio 1.0 Lipase 19 Urine Color Yellow Urine Clarity Clear Urine pH 6.0 Ur Specific [place] 1.015 Urine Protein 100 H Urine Glucose (UA) Normal Urine Ketones Negative Urine Occult Blood 150 H Urine Nitrite Negative Urine Bilirubin Negative Urine Urobilinogen 1 H Ur Leukocyte Esterase Negative Urine RBC 10-25 SEEN Urine WBC 0-5 SEEN Ur Squamous Epith Cells 0-5 SEEN Urine Bacteria RARE Urine Mucus RARE Radiography Diagnostic Testing: Clinical Impression(s) from Imaging Studies Chest X-Ray 07/26/24 16:20 IMPRESSION: Prior sternotomy again seen. Prior aortic stent graft, with stable positioning. Lungs appear clear of acute disease. No pleural effusion or pneumothorax is evident. No evidence of pneumoperitoneum. The cardiomediastinal silhouette is stable, without evidence of cardiomegaly. No evidence of acute cardiopulmonary disease. Reading Location: [address] Discharge Plan Triage Chief Complaint: Weakness ED Provider: Oniel Pearson Dx/Rx/DC Orders Clinical Impression: COVID-19 virus infection, History of coronary artery bypass surgery, Influenza, Acute viral syndrome Instructions: Coronavirus Disease 2019 (COVID-19): Caring for Yourself or Others, ED Influenza (Adult) Prescriptions: New oseltamivir [Tamiflu] 75 mg capsule 75 mg PO BID 5 Days Qty: 10 0RF No Action lisinopril 40 mg tablet 20 mg PO DAILY Patient Comments: pt's home med list states 20mg daily Rx Instructions: orally daily; metformin 500 mg tablet 1,000 mg PO BREAKFAST gabapentin 300 mg capsule 300 mg PO BID atorvastatin 40 mg tablet 40 mg PO DAILY Qty: 90 3RF Trulicity 1.5 mg/0.5 mL pen injector 1.5 mg subcut QWEEK Patient Comments: INJECT 1.5 MG SUBCUTANEOUSLY ONE TIME A WEEK. INJECT ONCE PER WEEK. DISCARD PEN AFTER Rx Instructions: takes on tuesdays metoprolol tartrate 50 MG tablet 50 mg PO BID metformin 500 mg Tablet 500 mg PO DINNER hydrocodone-acetaminophen 5-325 mg Tablet 1 tab PO Q12H diphenhydramine HCl 12.5 mg tablet,chewable 12.5 mg PO Q6H PRN (Reason: allergic rash) Qty: 30 0RF Rx Instructions: for allergic rash. methylprednisolone [Medrol (Jaron)] 4 mg tablets,dose pack 4 mg PO DAILY Qty: 21 0RF Rx Instructions: Take it as directed. insulin degludec [Tresiba FlexTouch U-200] 200 unit/mL (3 mL) Insulin Pen 100 unit SUBCUT DAILY Qty: 9 0RF Rx Instructions: Hold if glucose less than 130 mg/dl. insulin lispro [Humalog U-100 Insulin] 100 unit/mL solution 6 unit subcut .with meals Rx Instructions: 6 units with meals plus sliding scale 2units for every 50 over. this is per pt's home med list. pantoprazole 40 mg tablet,delayed release (DR/EC) 40 mg PO folic acid 1 mg tablet 1 mg PO DAILY ferrous gluconate 324 mg (38 mg iron) tablet 324 mg PO QODAY Xarelto 20 mg tablet 20 mg PO DAILY Qty: 90 3RF Rx Instructions: must administer with evening meal Primary Care Provider: Ricci Rick Referrals: Ricci Rick MD [Primary Care Provider] - 1-2 Weeks Activity Restrictions/Additional Instructions: Viral swabs positive for COVID and flu. X-ray negative chest and abdomen. Her labs are all stable. Oxygen is stable. Due to being on Xarelto, contraindication with Paxlovid for COVID treatment. Take Tamiflu as prescribed. If you develop worsening symptoms specially with breathing, return to ED for reevaluation. Print Language: Taiwanese Disposition Disposition: Home, Self Care Discharge Date/Time: 07/26/24 19:59
[2024-07-26] MEDS: Ondansetron 4 MG/2 ML Vial IV (15:55)
[2024-07-26 16:07] LABS: Absolute Lymphocyte Count 0.33 X10^3/uL (0.83-4.51); Absolute Neutrophil Count 2.9 X10^3/uL (2.0-7.7); Basophil# 0.04 X10^3/uL; Basophil% 1.1 % (0-1); Eosinophil# 0.02 X10^3/uL; Eosinophils% 0.5 % (0-5); Hematocrit 30.3 % (40-54); Hemoglobin 9.7 g/dL (13.0-16.5); Lymphocyte # 0.33 X10^3/ul (0.83-4.51); Lymphocyte % 8.9 % (19-41); Mean Corpuscular Hgb 27.3 pg (27.0-32.0); Mean Corpuscular Volume 85.4 fL (80-94); Monocyte# 0.39 X10^3/uL; Monocyte% 10.6 % (0-10); NRBC Flagged by Analyzer 0 % (0-5); Neutrophil # 2.89 X10^3/uL (2.7-7.7); Neutrophil % 78.4 % (47-70); POSITIVE DIFFERENTIAL YES; Platelet Count 135 K/mm3 (150-450); RBC Distribution Width CV 16.2 % (11.6-14.6); RBC Distribution Width SD 50.1 fl (35.1-43.9); Red Blood Count 3.55 M/mm3 (4.6-6.2); White Blood Count 3.7 K/mm3 (4.4-11.0)
[2024-07-26 16:08] VITALS: PULSE 78; RESP 18; O2SAT 95
[2024-07-26 16:08] LABS: POSITIVE COUNT NO; POSITIVE MORPHOLOGY NO
--- NOTE | 2024-07-26 16:20 | RAD_ITS ---
PROCEDURE: ABD INC DECUB AND/OR ERECT REASON FOR EXAM: Abdominal pain and cough. TECHNIQUE: Three-view supine and upright views of the abdomen. COMPARISON: Chest x-ray of 07/26/2024. RAD/Abd Inc Decub and/or Erect IMPRESSION: No evidence of pneumoperitoneum. The bowel-gas pattern is within the normal range. Moderate degenerative changes of the spine are seen. Mild bilateral hip joint degenerative changes are seen. Mild sacroiliac joint degenerative changes are noted. Reading Location: [id number]
--- NOTE | 2024-07-26 16:20 | RAD_ITS ---
PROCEDURE: CHEST PA AND LATERAL REASON FOR EXAM: Cough, abdominal pain, and nausea. TECHNIQUE: Single frontal image including the chest and abdomen. COMPARISON: Prior study of 05/03/2023. RAD/Chest PA and Lateral IMPRESSION: Prior sternotomy again seen. Prior aortic stent graft, with stable positioning. Lungs appear clear of acute disease. No pleural effusion or pneumothorax is evident. No evidence of pneumoperitoneu m. The cardiomediastinal silhouette is stable, without evidence of cardiomegaly. No evidence of acute cardiopulmonary disease. Reading Location: [id number]
--- NOTE | 2024-07-26 16:30 | ED.RN ---
This RN notified by security that the patient punched a monitor while down at xray. Security said that the patient's daughter called while xray was attempting to obtain image. Patient was instructed to wait until after image is captured to answer phone. Patient became irate and punched monitor.
[2024-07-26 16:39] LABS: AST(SGOT) 45 U/L (15-37); Alanine Aminotransfer ALT/SGPT 21 U/L (16-61); Albumin, Serum 3.4 g/dL (3.2-5.0); Alkaline Phosphatase 62 U/L (45-117); Anion Gap 6 (5-15); BUN 13 mg/dL (7-18); BUN/Creat Ratio 10.6 RATIO (10-20); Calcium,Total 9.1 mg/dL (8.5-10.1); Chloride 106 mmol/L (98-107); Creatinine, Serum 1.23 mg/dL (0.70-1.30); EST Glomerular Filtration Rate 62 mL/min (>60); Est Glom Filt Rate - Afr Amer 74 mL/min (>60); Estimated Creatinine Clearance 57.95 ml/min; Globulin 3.3 g/dL (2.2-4.2); Glucose 78 mg/dL (74-106); Lipase 19 U/L (13-75); Potassium 3.9 mmol/L (3.5-5.1); Protein, Total 6.7 g/dL (6.4-8.2); Sodium Level 136 mmol/L (136-145)
--- NOTE | 2024-07-26 16:56 | ED.RN ---
Patient given sprite and sandwich
--- NOTE | 2024-07-26 16:59 | ED.RN ---
Patient given urinal and prompted for urine sample
--- NOTE | 2024-07-26 17:39 | ED.RN ---
This Rn went into room to assist pt. with gettingitems he had dropped on the floor. Pt. voiced need for AMA paperwork. This RN stated that I could get him that paperwork and let the dr. know that he would like to leave. Pt states well no one has been in the room since I got here. This RN informed pt. that was not true, he has seen several nurses/tech as he has put his call light on. Pt. informed that he saw the DrRadha upon arrival and would see the DrRadha when all his results were back. pt. stated he did not want AMA paperwork at this time.
[2024-07-26 17:47] LABS: Color, Urine Yellow (Yellow); Glucose, Dipstick Normal (Normal); Ketone-Dipstick Negative (Negative); Leukocyte Esterase-Dipstick Negative /ul (Negative); Nitrite-Dipstick Negative (Negative); Occult Blood-Urine 150 /ul (Negative); Protein-Dipstick 100 mg/dl (Negative); Specific Gravity, Urine 1.015 (1.002-1.030); Urine Bilirubin Dipstick Negative (Negative); Urine Clarity Clear (Clear); Urine Urobilinogen 1 mg/dl (Normal)
--- NOTE | 2024-07-26 17:55 | ED.RN ---
Pt. daughter called this Rn for an update on pt. Pt. confirmed with this RN that I am ok to update his daughter Ary. This Rn updated Ary as to why he called a squad, the tests that were being performed, and that the results were not currently back yet. Daughter concerned on how he would get home, she stated I have to work in the morning, and I live 45 minutes away. If he can get an emergency squad to the ER then they need to take him home.. This RN informed daughter that an emergency squads only bring pt. to the hospital but that does not mean they can take him home. For a ride home, pt.family would need to assist pt. in calling for a taxi, or a personal friend/family to pick him up and that at this time, he had no diagnosis that would insurance would cover for a ride home but that he/she should be able to call insurance company. Daughter states well he cannot make that phone call and he cannot call for a ride, maybe I will just call police department to take him home. This RN responded that she would be more than welcome to try to call police, but they are also not a taxi service so they would likely not offer a ride home. This RN also informed daughter that if he ended up leaving AMA, insurance companies would likely not take him home. Daughter became very upset over phone. Wanted this RN's name and title which was given to her. Anika charge nurse notified of situation. Daughter also informed that pt. test results were not back and we do not have definite diagnosis/plan of care or if he will be admitted or dishcarged home.
--- NOTE | 2024-07-26 17:58 | ED.RN ---
Pt. daughter called this RN for an update on pt. Pt. confirmed with this RN that I am ok to update his daughter Ary. This RN updated Ary as to why he called a squad, the tests that were being performed, and that the results were not currently back yet. Daughter concerned on how he would get home, she stated I have to work in the morning, and I live 45 minutes away. If he can get an emergency squad to the ER then they need to take him home.. This RN informed daughter that an emergency squads only bring pt. to the hospital but that does not mean they can take him home. For a ride home, pt./family would need to assist pt. in calling for a taxi, or a personal friend/family to pick him up, or calling his insurance for a personal ride. This RN also stated that that at this time, he had no diagnosis that would insurance would cover for a ambulance ride home but that he/she should be able to call insurance company. Daughter states well he cannot make that phone call and he cannot call for a ride, maybe I will just call police department to take him home. This RN responded that she would be more than welcome to try to call police, but they are also not a taxi service so they would likely not offer a ride home. This RN also informed daughter that if he ended up leaving [facility], insurance companies would likely not take him home. Daughter became very upset over phone. Wanted this RN's name and title which was given to her. Anika charge nurse notified of situation. Daughter also informed that pt. test results were not back and we do not have definite diagnosis/plan of care or if he will be admitted or discharged home.
[2024-07-26 18:00] VITALS: O2SAT 96
--- NOTE | 2024-07-26 18:22 | ED.RN ---
This RN bedside due to patient hitting call light. Patient said I'm freezing in here. Patient noted to have placed his sweatshirt back on and to have his stomach not covered in room and sweatshirt pulled up above it. Patient educated that he can cover himself up as he lives home alone and does these things daily. Patient states I'm disabled, don't you know this? while holding his hands up in front of this RN's face. Patient recovered up by this RN and given an additional blanket.
--- NOTE | 2024-07-26 18:32 | ED.RN ---
Pts daughter ian called and stated that she had spoken to his insurance company that provides transportation and that they just need a nurse to call and say that the pt can be discharged. I explained to the daughter that the nurse could not call due to the patient wanting to leave AMA. I explained that they had talked about the patient being admitted and he decided he didn't want to wait for the rest of his test results to see if that was the plan. She stated that she would be calling the patient and that he is lying to her about his care. She asked if we could take him a blanket because he is cold. I explained that we have taken him multiple blankets but we would take him another one.
[2024-07-26 18:49] LABS: Red Blood Cells-Urine 10-25 SEEN /hpf (0-5); White Blood Cells 0-5 SEEN /hpf (0-5)
[2024-07-26 18:50] LABS: Bacteria RARE /hpf (None Seen); Mucous, Urine RARE /hpf (<or=2+)
[2024-07-26 18:52] LABS: Squamous Epithelial Cells - UA 0-5 SEEN /hpf (0-5)
--- NOTE | 2024-07-26 18:56 | ED.RN ---
Pt. asked for a phone financial planning assistant. This RN got him a phone financial planning assistant and plugged in his phone at bedside. At this time, Sylvia FITTING ROOM MAINTENANCE MECHANIC went into check pt. vitals because his blood pressure cuff gave a low reading despite the cuff not being on pt. body at all. Pt. told sylvia to get out of room, and that we can check his vitals later. Pt. walking around room, making his bed.
--- NOTE | 2024-07-26 19:00 | ED.RN ---
Pt. came out of room, leaned on suture cart and stated i dont feel so well. This RN attempted to walk pt. 5 feet back to his room to lay in bed and pt. stated that his bed was not made yet. THis RN told him that he needs to lay in his bed if hes not feeling well, but pt. insisted he wanted to sit in nurses chair at nurses station. This RN got pt. back into his own bed, to which he then got up by himself to turn off lights.
[2024-07-26 19:50] VITALS: BP 137/58; PULSE 78; RESP 18; TEMP 37.1; O2SAT 96
--- NOTE | 2024-07-26 20:00 | ED.RN ---
Patient given number for cab company and instructions on how to call for ride.
== END 2024-07-26 19:59 | disposition home or self-care (01) ==
PROVIDERS: Emergency Provider Emergency Medicine; PCP Family Medicine; Visit Provider Emergency Medicine
DX: R53.1 Weakness (principal); I48.20 Chronic atrial fibrillation, unspecified; E11.9 Type 2 diabetes mellitus without complications; U07.1 COVID-19; Z95.1 Presence of aortocoronary bypass graft; Z87.891 Personal history of nicotine dependence; I25.10 Atherosclerotic heart disease of native coronary artery without angina pectoris; E78.2 Mixed hyperlipidemia; I10 Essential (primary) hypertension; Z79.01 Long term (current) use of anticoagulants; J11.1 Influenza due to unidentified influenza virus with other respiratory manifestations; Z86.73 Personal history of transient ischemic attack (TIA), and cerebral infarction without residual deficits; G47.33 Obstructive sleep apnea (adult) (pediatric); Z99.89 Dependence on other enabling machines and devices; Z79.899 Other long term (current) drug therapy; Z79.84 Long term (current) use of oral hypoglycemic drugs; Z79.85 Long-term (current) use of injectable non-insulin antidiabetic drugs
CPT/HCPCS: 71046; 74019; 80053; 81001; 83690; 85025; 87631; 93005; 96374; 99285; A4216; J2405